=== PATIENT | male | born 1985 | race Caucasian/White ===

== ENCOUNTER → 2020-06-28 09:55 | Outpatient (CLI) | payer BC, SELFPAY ==
[2019-01-12 07:44] VITALS: BMI 48.8
== END ==
PROVIDERS: Referring Provider Nurse Practitioner Family; Visit Provider Nurse Practitioner Family
DX: R11.2 Nausea with vomiting, unspecified (principal); R19.7 Diarrhea, unspecified; Z20.828 Contact with and (suspected) exposure to other viral communicable diseases
CPT/HCPCS: 87635; C9803; U0003

== ENCOUNTER 2023-01-24 11:52 | Emergency (ER) | payer SELFPAY ==
[2023-01-24 11:52] VITALS: BP 149/97; PULSE 90; RESP 14; TEMP 36.3; O2SAT 99; BMI 42.0
--- NOTE | 2023-01-24 12:11 | EDS_ITS ---
HPI <RICHELLE Nielsen - Last Filed: 01/24/23 14:54> History of Present Illness Chief Complaint: Hyperglycemia Narrative Narrative: Patient presenting today with concerns for hyperglycemia. He states that on Thursday he had a physical examination with a health clinic at work and they did a glucose test which came back at 300. He then bought a glucose monitor and noticed that it was 260 this morning fasting. He then went to urgent care and they performed a glucose test and it was 290. Because it had gone up they recommended he come to the emergency department to be evaluated. No history of diabetes states he does not have a PCP and does not get preventative care. His mom has a history of type 2 diabetes. He denies any increased thirst, increased hunger, increased urination, abdominal pain, nausea, and vomiting. PFSH <RICHELLE Nielsen - Last Filed: 01/24/23 14:54> [facility] Medical History (Updated 01/24/23 @ 13:36 by RICHELLE Nielsen) Sleep apnea Home Medications metformin 500 mg tablet,extended release 24 hr 500 mg PO QPM #30 tabs 01/24/23 [Rx Last Taken Unknown] Allergy/AdvReac Type Severity Reaction Status Date / Time Seasonal Allergies: Uncoded AdvReac Other Verified 01/24/23 12:25 Surgical History History of cholecystectomy Social History Smoking Status: Former smoker ROS <RICHELLE Nielsen - Last Filed: 01/24/23 14:54> ROS ED Constitutional Constitutional ED: Denies chills, fever(s) or sweats Eyes Eyes: Denies blurry vision Cardiovascular Cardiovascular: Denies chest pain or palpitations Respiratory/Chest Respiratory/Chest: Denies cough, dyspnea or wheezing Gastrointestinal Gastrointestinal: Denies abdominal pain, nausea or vomiting Genitourinary Genitourinary ED: Denies dysuria, hematuria or urinary urgency Musculoskeletal Musculoskeletal: Denies arthralgias or myalgias Integumentary Denies abscess, Abrasions or rash Neurologic Neurologic: Denies confusion, dizziness or weakness Psychiatric Psychiatric: Denies anxiety, depression, suicidal ideation or suicidal thoughts EXAM <RICHELLE Nielsen - Last Filed: 01/24/23 14:54> Physical Exam Const Vital Signs: 01/24/23 11:52 Temperature 97.3 F L Temperature Source Temporal Pulse Rate 90 Respiratory Rate 14 Blood Pressure 149/97 H Blood Pressure Mean 114 Pulse Ox 99 Oxygen Delivery Method Room Air Positive well nourished, well developed and no apparent distress General Appearance ED: well developed HEENT Reports normocephalic and head/scalp atraumatic Mouth ED: Yes moist mucous membranes normal Eyes PERRL and EOMs intact bilaterally Neck full ROM and supple Chest Wall inspection of chest normal Resp normal respiratory effort and clear to auscultation bilaterally Cardio regular rate and regular rhythm GI soft to palpation, non-tender, non-distended and no masses Back/Spine normal ROM and normal to inspection Extremity normal to inspection and full ROM Neuro oriented x3, CN's II-XII intact bilaterally, moves all extremities, no focal motor deficits and no sensory deficits noted Sensorium / Orientation: awake and alert Psych mental status grossly normal and thought process normal Skin no rashes or lesions noted and no wounds <Dr. Kristina Rojas DO - Last Filed: 01/24/23 12:19> Physical Exam Const Vital Signs: 01/24/23 11:52 Temperature 97.3 F L Temperature Source Temporal Pulse Rate 90 Respiratory Rate 14 Blood Pressure 149/97 H Blood Pressure Mean 114 Pulse Ox 99 Oxygen Delivery Method Room Air MDM <RICHELLE Nielsen - Last Filed: 01/24/23 14:54> [facility] MDM Narrative Medical decision making narrative: Presenting today for concerns for diabetes. He has had several high blood sugar readings over this past week. He does not have a PCP and has had no recent A1c. Labs obtained to rule out DKA here. His glucose is 291 without an anion gap and serum acetone is negative. I have spoke to Dr. Morley to establish patient for follow-up and he recommends starting patient on metformin and he will try to get him into the office next week if possible. Patient will be started on metformin and is comfortable with plan. He will be discharged home in stable condition with PCP follow-up. Has been given return instructions. I have personally performed a face to face assessment of the patient and have r eviewed the JOSE [facility] Note. I performed a substantive portion of the visit including all aspects of the following. My espinoza findings include: History is [patient presents the emergency department with concern about elevated blood glucose. Patient states that he had a physical for a new job 2 days ago and it was noted in his urine and he was spilling glucose. They checked his blood sugar and it was over 300. Patient was seen back today and had a fasting level done and was 280. A repeat level afterwards was 290 and they referred him to the ER. There is a family history of diabetes. Patient states he feels fine. Patient states he eats a lot of carbs. His significant other was concerned that he might go into a coma. Patient otherwise has no medical history.] Exam is [HEENT-PERRLA, EOMI. Cranial nerves II through XII grossly intact. TMs clear. Mucous membranes moist. No adenopathy. Cardiovascular-regular rate and rhythm without murmur or ectopy Lungs-clear to auscultation, chest wall stable without crepitus or subcu emphysema Abdomen-normoactive bowel sounds, soft, nontender, no rebound or rigidity, no peritoneal signs. Extremities-intact ?4, normal range of motion, normal pulses, atraumatic] Medical Decison Making [patient will have basic labs ordered. We will discussed case with primary care physician advisory application developer for no doc to start patient on diabetic meds and ensure close follow-up. Suspect patient likely type II diabetic. Patient is also overweight and will recommend regimen of diet and exercise.] Other additions or changes: [None] Lab Data Lab results narrative: CBC unremarkable, sodium 132, glucose 291, no anion gap, acetone negative Labs: Laboratory Results - last 24 hr 01/24/23 01/24/23 01/24/23 12:28 12:28 12:28 WBC 7.4 RBC 5.56 Hgb 16.1 Hct 46.9 MCV 84.4 MCH 29.0 MCHC 34.3 RDW Std Deviation 40.3 RDW Coeff of [place] 13.1 Plt Count 248 MPV 9.7 Immature Gran % (Auto) 1.400 H Neut % (Auto) 66.1 Lymph % (Auto) 26.1 Potter % (Auto) 4.9 Eos % (Auto) 1.1 Baso % (Auto) 0.4 Absolute Neuts (auto) 4.9 Absolute Lymphs (auto) 1.92 Nucleated RBC % 0 Sodium 132 L Potassium 3.6 Chloride 100 Carbon Dioxide 25.0 Anion Gap 7 BUN 12 Creatinine 0.83 Estim Creat Clear Calc 121.86 Est GFR (MDRD) Af Amer 134 Est GFR (MDRD) Non-Af 111 BUN/Creatinine Ratio 14.5 Glucose 291 H Calcium 9.6 Acetone Level NEGATIVE <Dr. Kristina Rojas, DO - Last Filed: 01/24/23 12:19> [facility] Narrative Medical decision making narrative: I have personally performed a face to face assessment of the patient and have reviewed the JOSE ANGEL Note. I performed a substantive portion of the visit including all aspects of the following. My espinoza findings include: History is [patient presents the emergency department with concern about elevated blood glucose. Patient states that he had a physical for a new job 2 days ago and it was noted in his urine and he was spilling glucose. They checked his blood sugar and it was over 300. Patient was seen back today and davey d a fasting level done and was 280. A repeat level afterwards was 290 and they referred him to the ER. There is a family history of diabetes. Patient states he feels fine. Patient states he eats a lot of carbs. His significant other was concerned that he might go into a coma. Patient otherwise has no medical history.] Exam is [HEENT-PERRLA, EOMI. Cranial nerves II through XII grossly intact. TMs clear. Mucous membranes moist. No adenopathy. Cardiovascular-regular rate and rhythm without murmur or ectopy Lungs-clear to auscultation, chest wall stable without crepitus or subcu emphys massiel Abdomen-normoactive bowel sounds, soft, nontender, no rebound or rigidity, no peritoneal signs. Extremities-intact ?4, normal range of motion, normal pulses, atraumatic] Medical Decison Making [patient will have basic labs ordered. We will discussed case with primary care physician advisory application developer for no doc to start patient on diabetic meds and ensure close follow-up. Suspect patient likely type II diabetic. Patient is also overweight and will recommend regimen of diet and exercise.] Other additions or changes: [None] Lab Data Attestation: I reviewed the patient's lab results. Labs: Laboratory Results - last 24 hr 01/24/23 01/24/23 01/24/23 12:28 12:28 12:28 WBC 7.4 RBC 5.56 Hgb 16.1 Hct 46.9 MCV 84.4 MCH 29.0 MCHC 34.3 RDW Std Deviation 40.3 RDW Coeff of [place] 13.1 Plt Count 248 MPV 9.7 Immature Gran % (Auto) 1.400 H Neut % (Auto) 66.1 Lymph % (Auto) 26.1 Potter % (Auto) 4.9 Eos % (Auto) 1.1 Baso % (Auto) 0.4 Absolute Neuts (auto) 4.9 Absolute Lymphs (auto) 1.92 Nucleated RBC % 0 Sodium 132 L Potassium 3.6 Chloride 100 Carbon Dioxide 25.0 Anion Gap 7 BUN 12 Creatinine 0.83 Estim Creat Clear Calc 121.86 Est GFR (MDRD) Af Amer 134 Est GFR (MDRD) Non-Af 111 BUN/Creatinine Ratio 14.5 Glucose 291 H Calcium 9.6 Acetone Level NEGATIVE Discharge Plan Triage Chief Complaint: Hyperglycemia ED Midlevel Provider: Eleln Arechiga ED Provider: Kristina Rojas Dx/Rx/DC Orders Clinical Impression: Hyperglycemia Instructions: ED Diabetes- Overview Prescriptions: New metformin 500 mg tablet extended release 24 hr 500 mg PO QPM Qty: 30 0RF Primary Care Provider: Care Physician,No Primary Referrals: Mallorie Morley MD [Med Staff - [employer] Specialist] - 5-7 Days Care Physician,No Primary [Primary Care Provider] - Activity Restrictions/Additional Instructions: Please follow-up with the PCP I referred you to. Disposition Disposition: Home, Self Care Discharge Date/Time: 01/24/23 13:50
[2023-01-24 12:40] LABS: Absolute Lymphocyte Count 1.92 X10^3/uL (0.83-4.51); Absolute Neutrophil Count 4.9 X10^3/uL (2.0-7.7); Basophil# 0.03 X10^3/uL; Basophil% 0.4 % (0-1); Eosinophil# 0.08 X10^3/uL; Eosinophils% 1.1 % (0-5); Hematocrit 46.9 % (40-54); Hemoglobin 16.1 g/dL (13.0-16.5); Lymphocyte # 1.92 X10^3/ul (0.83-4.51); Lymphocyte % 26.1 % (19-41); Mean Corp Hgb Conc 34.3 g/dL (32-36); Mean Corpuscular Volume 84.4 fL (80-94); Mean Platelet Vol. 9.7 fl (6.2-12.0); Monocyte# 0.36 X10^3/uL; Monocyte% 4.9 % (0-10); NRBC Flagged by Analyzer 0 % (0-5); Neutrophil # 4.88 X10^3/uL (2.7-7.7); Neutrophil % 66.1 % (47-70); Platelet Count 248 K/mm3 (150-450); RBC Distribution Width CV 13.1 % (11.6-14.6); RBC Distribution Width SD 40.3 fl (35.1-43.9); Red Blood Count 5.56 M/mm3 (4.6-6.2); White Blood Count 7.4 K/mm3 (4.4-11.0)
[2023-01-24 12:53] LABS: Anion Gap 7 (5-15); BUN 12 mg/dL (7-18); BUN/Creat Ratio 14.5 RATIO (10-20); Calcium,Total 9.6 mg/dL (8.5-10.1); Chloride 100 mmol/L (98-107); Creatinine, Serum 0.83 mg/dL (0.70-1.30); EST Glomerular Filtration Rate 111 mL/min (>60); Est Glom Filt Rate - Afr Amer 134 mL/min (>60); Estimated Creatinine Clearance 121.86 ml/min; Glucose 291 mg/dL (74-106); Potassium 3.6 mmol/L (3.5-5.1); Sodium Level 132 mmol/L (136-145)
== END 2023-01-24 13:50 | disposition home or self-care (01) ==
PROVIDERS: Physician Assistant; Emergency Provider Emergency Medicine; Visit Provider Emergency Medicine
DX: R73.9 Hyperglycemia, unspecified (principal); Z87.891 Personal history of nicotine dependence; E66.3 Overweight; Z90.49 Acquired absence of other specified parts of digestive tract
CPT/HCPCS: 80048; 82009; 85025; 99283; A4216

== ENCOUNTER → 2024-01-22 | Outpatient (CLI) | payer OTHER, SELFPAY ==
[2024-01-22 12:23] LABS: Absolute Lymphocyte Count 2.25 X10^3/uL (0.83-4.51); Absolute Neutrophil Count 5.1 X10^3/uL (2.0-7.7); Basophil# 0.02 X10^3/uL; Basophil% 0.3 % (0-1); Eosinophil# 0.05 X10^3/uL; Eosinophils% 0.6 % (0-5); Hematocrit 44.6 % (40-54); Hemoglobin 14.6 g/dL (13.0-16.5); Lymphocyte # 2.25 X10^3/ul (0.83-4.51); Lymphocyte % 28.8 % (19-41); Mean Corp Hgb Conc 32.7 g/dL (32-36); Mean Corpuscular Hgb 28.5 pg (27.0-32.0); Mean Corpuscular Volume 87.1 fL (80-94); Mean Platelet Vol. 10.1 fl (6.2-12.0); Monocyte# 0.41 X10^3/uL; Monocyte% 5.2 % (0-10); NRBC Flagged by Analyzer 0 % (0-5); Neutrophil # 5.06 X10^3/uL (2.7-7.7); Neutrophil % 64.7 % (47-70); Platelet Count 268 K/mm3 (150-450); RBC Distribution Width CV 13.3 % (11.6-14.6); RBC Distribution Width SD 42.5 fl (35.1-43.9); Red Blood Count 5.12 M/mm3 (4.6-6.2); White Blood Count 7.8 K/mm3 (4.4-11.0)
[2024-01-22 13:30] LABS: Microalbumin,Random Urine 47.3 mg/L (NO RANGE EST.); Microalbumin:Creatinine Ratio 47.4 mg/g CRE (<30 mg/g CRE)
[2024-01-22 13:34] LABS: AST(SGOT) 23 U/L (15-37); Alanine Aminotransfer ALT/SGPT 53 U/L (16-61); Alkaline Phosphatase 100 U/L (45-117); Anion Gap 6 (5-15); BUN 15 mg/dL (7-18); BUN/Creat Ratio 17.2 RATIO (10-20); Calcium,Total 9.8 mg/dL (8.5-10.1); Chloride 103 mmol/L (98-107); Cholesterol 125 mg/dL (200); Creatinine, Serum 0.87 mg/dL (0.70-1.30); EST Glomerular Filtration Rate 104 mL/min (>60); Est Glom Filt Rate - Afr Amer 126 mL/min (>60); Globulin 4.1 g/dL (2.2-4.2); Glucose 226 mg/dL (74-106); High Density Lipoprotein 29 mg/dL; Potassium 4.3 mmol/L (3.5-5.1); Protein, Total 8.1 g/dL (6.4-8.2); Sodium Level 136 mmol/L (136-145); Triglycerides 353 mg/dL; Very Low Density Lipoprotein 71 mg/dL (5-40)
== END | disposition home or self-care (01) ==
PROVIDERS: PCP Internal Medicine; Referring Provider Internal Medicine; Visit Provider Internal Medicine
DX: E11.9 Type 2 diabetes mellitus without complications (principal)
CPT/HCPCS: 36415; 80053; 80061; 82043; 82570; 85025

== ENCOUNTER → 2025-05-26 | Outpatient (CLI) | payer OTHER, SELFPAY ==
--- OUTSIDE RECORDS SUMMARY | 2025-05-26 11:23 | XMS RPT_ITS | CCD ---
Author Organization [facility] Care Team Providers Care Lab Tester Name Role Phone Sharri Ibarra PA-C Unavailable [phone] Leodana, Cori Unavailable Mario Law Unavailable Alex Scott Unavailable Suni Larry Unavailable Unavailable Tate Prakash Unavailable Unavailable Lorie Qiu Unavailable Unavailable Rhianna Staples Unavailable Unavailable Unavailable Unavailable Shahida Le Unavailable Unique Redding Unavailable Unavailable Staceyesa, Milena Attending Unavailable Ciesa, Milena Referring Unavailable Staceyesa, Milena Consulting Unavailable Alex Garcia MD Unavailable Unavailable Primary Care Provider Unavailabl e John, Sarah Referring Unavailable [place], Sarah Attending Unavailable [place], Sarah Primary Care Unavailable [place], Sarah Primary Care Unavailable John, Sarah Referring Unavailable [place], Sarah Attending Unavailable [place], Sarah Primary Care Unavailable [place], Sarah Referring Unavailable Finesse Guy Attending Unavailable [place], Sarah Referring Unavailable John, Sarah Attending Unavailable John, Sarah Primary Care Unavailable [place], Sarah Attending Unavailable Care Physician, No Primary Referring Unava ilable [place], Sarah Primary Care Unavailable John JONES, Dr. Smith Primary Care Provider [phone] Dr. Sarah Lopez MD Referring Provider Finesse Guy Attending Provider [phone] Finesse Guy Referring Provider [phone] Allergies Allergy Classification Reported Allergen(s) Allergy Type Date of Onset Reaction(s) Facility (3 sources) Pollen Extracts *ALTERNATIVE MEDICINES*; Translations: [Pollen Extracts *ALTERNATIVE MEDICINES*] drug allergy [facility] Work Phone: (2 sources) Seasonal Allergies: Uncoded; Translations: [Seasonal Allergies: Uncoded] Propensity to adverse reactions 3 Other [facility] Medications Current Medications Medication Drug Class(es) Dates Sig (Normalized) Sig (Original) aspirin 81 mg delayed release oral tablet (1 source) Platelet Aggregation Inhibitor, Nonsteroidal Anti-inflammatory Drug take 1 tablet by mouth once daily aspirin, enteric coated (ASPIRIN, ENTERIC COATED) 81 mg EC tablet Take 81 mg by mouth once daily. Active empagliflozin 10 mg oral tablet (1 source) Sodium-Glucose Cotransporter 2 Inhibitor Start: 05-26-2025 take 1 tablet by mouth once daily Empagliflozin (Jardiance) 10 mg tablet Active 10 mg PO daily 90 0 May 26, 2025 12:00am loratadine 10 mg oral tablet (5 sources) Start: 02-06-2023 take 1 tablet by mouth once daily Loratadine (Claritin) 10 mg tablet,chewable Active 10 mg PO DAILY February 06, 2023 12:00am Start: 01-12-2019 take 1 capsule by mo [facility] once daily Claritin 10 MG Oral Capsule 1 (one) Capsule daily for 0 days Quantity: 30 {Capsule} Refills: 0 Ordered: 12-Jan-2019 Nabil VALDOVINOS, Cori Nabil VALDOVINOS, Milena Raman Start : 12-Jan-2019 Active loratadine (CLAR ITIN ORAL) Take by mouth. Active 24 hr metFORMIN hydrochlorid e 500 mg extended release oral tablet (19 sources) Biguanide Start: 12-23-2024 End: 05-26-2025 Metformin 500 mg tablet extended release 24 hr Active 1000 mg PO TWICE A DAY 120 2 May 26, 2025 9:18am Start: 08-15-2023 take 1 tablet by umesh every twelve hours metFORMIN ER (GLUCOPHAGE XR) 500 mg 24 hr tablet Take 1 tablet by mouth every 12 hours. 08/15/2023 Active Start: 02-06-2023 End: 05-26-2025 take 1 tablet by mouth twice daily Metformin 500 mg tablet extended release 24 hr Discontinued 500 mg PO TWICE A DAY 60 0 November 14, 2024 10:02am May 26, 2025 9:18am Start: 01-24-2023 End: 02-06-2023 take 1 tablet by mouth once daily in the evening Metformin 500 mg tablet extended release 24 hr Discontinued 500 mg PO EVERY EVENING 30 0 January 24, 2023 12:00am February 06, 2023 10:08am ondansetron 4 mg disintegrating oral tablet (3 sources) Serotonin-3 Receptor Antagonist Start: 02-03-2025 take 1 tablet by mouth every eight hours as needed for nausea and nausea ondansetron orally disintegrating (ZOFRAN ODT) 4 mg disintegrating tablet Indications: Nausea Take 1 tablet by mouth every 8 hours as needed for nausea/vomiting for up to 10 doses. 10 tablet 02/03/2025 Active Start: 11-11-2018 End: 01-12-2019 take 1 tablet by mouth every eight hours as needed for nausea and vomiting Zofran ODT 4 MG Oral Tablet Disintegrating 1 (one) Tablet q 8hr prn nausea and vomitting for 0 days Quantity: 10 {Tablet} Refills: 0 Ordered: 12-Jan-2019 Tate Prakash Start : 11-Nov-2018 End : 12-Jan-2019 Discontinued Comments: This order discontinued per [facility]. Comment on above: This order discontin ued per [facility]. predniSONE 10 mg oral tablet (2 sources) Start: 04-22-2022 predniSONE (DELTASONE) 10 mg tablet Take 4 tabs daily for 3 days, then 2 tabs daily for 3 days, then 1 tab daily for 3 days with food. 21 tablet 04/22/2022 Active Tirzepatide (Mounjaro) 2.5 mg/0.5 mL pen injector (3 sources) Start: 05-26-2025 Tirzepatide (Mounjaro) 2.5 mg/0.5 mL pen injector Active 2.5 mg SC EVERY WEEK 2 May 26, 2025 12:00am for 4 weeks Start: 09-30-2023 End: 10-28-2023 Tirzepatide (Mounjaro) 2.5 m g/0.5 mL pen injector Discontinued 2.5 mg SC EVERY WEEK September 30, 2023 1:00am October 27, 2023 1:00am October 28, 2023 1:04am Type 2 diabetes mellitus Type 2 diabetes mellitus with hyperglycemia Start: 09-30-2023 End: 10-28-2023 Tirzepatide (Mounjaro) 2.5 m g/0.5 mL pen injector Discontinued 2.5 MG SC EVERY WEEK 2 September 30, 2023 1:00am October 28, 2023 1:04am Completed/Discontinued Medications Medication Drug Class(es) Dates Sig (Normalized) Sig (Original) acetaminophen 325 mg / guaiFENesin 200 mg / phenylephrine hydrochloride 5 mg oral tablet (1 source) alpha-1 Adrenergic Agonist Start: 01-12-2019 take 1 tablet by mouth twice daily Mucinex Sinus-Max Congestion 5-325-200 MG Oral Tablet 1 (one) Tablet bid for 0 days Quantity: 30 {Tablet} Refills: 0 Ordered: 12-Jan-2019 Nabil VALDOVINOS Milena Raman Staceymarilyndelta VALDOVINOS Milena Raman Start : 12-Jan-2019 Active Start: 01-12-2019 take 1 tablet by umesh th twice daily Mucinex Sinus-Max Congestion 5-325-200 MG Oral Tablet 1 (one) Tablet bid for 0 days Quantity: 30 {Tablet} Refills: 0 Ordered: 12-Jan-2019 Nabil VALDOVINOS Cori Cimarilyndelta VALDOVINOS Milena Raman Start : 12-Jan-2019 Active acetaminophen 325 mg / oxyCODONE hydrochloride 5 mg oral tablet (3 sources) Opioid Agonist Start: 06-04-2017 End: 01-12-2019 Oxycodone-Acetaminophen 1 TABLET tablet Discontinued 1 - 2 {tbl} PO EVERY 4 HOURS NEEDED as needed for Pain June 04, 2017 12:00am January 12, 2019 7:45am Start: 06-04-2017 End: 01-12-2019 take 1 tablet by mouth every four hours as needed Oxycodone-Acetaminophen Discontinued 1 - 2 TABLET PO EVERY 4 HOURS NEEDED June 04, 2017 12:00am January 12, 2019 7:45am cocoa butter 0.76 mg/mg / zinc oxide 0.1 mg/mg rectal suppository (3 sources) Start: 07-23-2017 End: 11-11-2018 Calmol-4 76-10 % Rectal Suppository 1 (one) Suppository Up to 6 times a day, or after each BM. for 0 days Quantity: 3 {Box} Refills: 0 Ordered: 11-Nov-2018 Tate Prakash Start : 23-Jul-2017 End : 11-Nov-2018 Inactive fenofibric acid 135 mg delayed release oral capsule (3 sources) Peroxisome Proliferator Receptor alpha Agonist Start: 06-28-2015 End: 07-23-2017 take 1 capsule by mouth once daily Trilipix 135 MG Oral Capsule Delayed Release 1 (one) Capsule DR Capsule DR daily for 0 days Quantity: 30 {QS} Refills: 11 Ordered: 23-Jul-2017 Rhianna Turner LPN Start : 28-Jun-2015 End : 23-Jul-2017 Inactive omeprazole 20 mg delayed release oral capsule (3 sources) Proton Pump Inhibitor Start: 05-14-2017 End: 07-23-2017 take 1 capsule by mouth once daily 30 minutes before mealtime Omeprazole Magnesium 20.6 (20 Base) MG Oral Capsule Delayed Release 1 (one) Capsule Capsule daily for 0 days Quantity: 30 {Capsule} Refills: 0 Ordered: 23-Jul-2017 Rhianna Turner LPN Start : 14-May-2017 End : 23-Jul-2017 Inactive Comments: Take at least 30 min before meal. Comment on above: Take at least 30 min before meal. Semaglutide (5 sources) Start: 05-02-2024 End: 12-23-2024 Semaglutide (Ozempic) 0.25 mg or 0.5 mg (2 mg/3 mL) pen injector Discontinued 0.5 mg SC EVERY WEEK 3 May 02, 2024 8:32am December 23, 2024 8:35am for 4 weeks Start: 03-28-2024 End: 05-02-2024 Semaglutide (Ozempic) 0.25 m g or 0.5 mg (2 mg/3 mL) pen injector Discontinued 0.5 mg SC EVERY WEEK 3 March 28, 2024 8:23am May 02, 2024 8:33am for 4 weeks Start: 01-28-2024 End: 03-28-2024 Semaglutide (Ozempic) 0.25 m g or 0.5 mg (2 mg/3 mL) pen injector Discontinued 0.5 mg SC EVERY WEEK 3 January 28, 2024 9:00am March 28, 2024 8:23am for 4 weeks Start: 11-16-2023 End: 01-28-2024 Semaglutide (Ozempic) 0.25 m g or 0.5 mg (2 mg/3 mL) pen injector Discontinued 0.25 mg SC EVERY WEEK 3 November 16, 2023 1:00am January 28, 2024 9:02am for 4 weeks Start: 11-16-2023 Semaglutide (O zempic) 0.25 mg or 0.5 mg (2 mg/3 mL) pen injector Active 0.25 MG SC EVERY WEEK 3 November 16, 2023 1:00am for 4 weeks NEGATED: Highlighted row has not occurred!drug or medication (1 source) No Known Histori felipa Medications Problems Active Problems Problem Classification Problem Date Documented Da te Episodic/Chronic Biliary tract disease (6 sources) Biliary sludge; Translations: [Other specified diseases of gallbladder] Onset: 7 05-29-2017 Chronic Diabetes mellitus with complications (1 source) Type 2 diabetes mellitus with hyperglycemia; Translations: [Type 2 diabetes mellitus with hyperglycemia] Onset: 5 Chronic Diabetes mellitus without complication (4 sources) Type 2 diabetes mellitus; Translations: [Type 2 diabetes mellitus without complications] Onset: 4 08-31-2023 Chronic Diabetes mellitus without complication (3 sources) Hyperglycemia; Translations: [Hyperglycemia, unspecified] 01-24-2023 Episodic Disorders of lipid metabolism (6 sources) Hypertriglyceridemia; Translations: [Hypertriglyceridemia] 07-23-2017 Chronic Esophageal disorders (3 sources) Gastroesophageal reflux disease; Translations: [Acid reflux] 07-23-2017 Chronic Gastrointestinal hemorrhage (2 sources) Melena; Translations: [Bloody stool] 07-23-2017 Episodic Influenza (3 sources) Influenza due to Influenza A virus; Translations: [Influenza due to other identified influenza virus with other respiratory manifestations] 01-12-2019 Episodic Nausea and vomiting (20 sources) Nausea; Translations: [Vomiting] Resolved: 7 07-23-2017 Episodic Other gastrointestinal disorders (2 sources) Irritable bowel syndrome; Translations: [Irritable bowel syndrome without diarrhea] 02-06-2023 Chronic Other gastrointestinal disorders (12 sources) Diarrhea; Translations: [Diarrhea, unspecified] 07-23-2017 Episodic Other gastrointestinal disorders (2 sources) Gastrointestinal tract problem; Translations: [Other specified symptoms and signs involving the digestive system and abdomen] 09-07-2023 Episodic Comment on above: bloating Other liver diseases (9 sources) Steatosis of liver; Translations: [Fatty liver] 07-23-2017 Chronic Comment on above: liver enzymes normal 05-14-17 Other nervous system disorders (3 sources) Circadian rhythm sleep disorder, shift work type; Translations: [Circadian rhythm sleep disorder of shift work type] 07-23-2017 Chronic Other nutritional; endocrine; and metabolic disorders (6 sources) Body mass index 40+ - severely obese; Translations: [BMI 45.0-49.9, adult] Resolved: 7 11-11-2018 Chronic Other upper respiratory disease (2 sources) Seasonal allergy; Translations: [Seasonal allergies] 01-12-2019 Chronic Other upper respiratory infections (3 sources) Common cold; Translations: [Acute upper respiratory infection] 01-12-2019 Episodic Past or Other Problems Problem Classification Problem Date Documented Da te Episodic/Chronic Abdominal pain (6 sources) Right upper quadrant pain; Translations: [Acute abdominal pain] Onset: 05-29-2017 05-29-2017 Episodic Complications of surgical procedures or medical care (2 sources) Vascular complication of medical care; Translations: [Intravenous infiltration, initial encounter] 11-11-2018 Episodic Esophageal disorders (2 sources) Esophageal disorders Fever of unknown origin (4 sources) Fever with chills; Translations: [Fever and chills] 11-11-2018 Episodic Fluid and electrolyte disorders (10 sources) Dehydration; Translations: [Dehydration] Resolved: 07-23-2017 11-11-2018 Episodic Comment on above: pos ortho-- go home and drink few ounces at a time - rx zofran called in-- attempted iv few times and they blew adn infiltrated-- Gastrointestinal hemorrhage (1 source) Blood-tinged feces; Translations: [Bloody stool] 01-12-2019 Headache; including migraine (3 sources) Headache; including migraine Hemorrhoids (6 sources) Bleeding internal hemorrhoids; Translations: [External hemorrhoids] 07-23-2017 Episodic Influenza (1 source) Influenza Noninfectious gastroenteritis (8 sources) Gastroenteritis; Translations: [Acute gastroenteritis] 07-23-2017 Episodic Comment on above: Treated in ER 015 Other liver diseases (6 sources) Large liver; Translations: [Hepatomegaly] 07-23-2017 Episodic Comment on above: from CT of abd on 09-09 Other lower respiratory disease (6 sources) Snoring; Translations: [Snoring] 07-23-2017 Episodic Other lower respiratory disease (2 sources) Cough; Translations: [Cough] 01-12-2019 Episodic Other upper respiratory disease (2 sources) Congestion of nasal sinus; Translations: [Congestion of nasal sinus] 01-12-2019 Episodic Unclassified (9 sources) BMI 45.0-49.9, adult Unclassified (3 sources) Internal hemorrhoid, bleeding Unclassified (20 sources) Unclassified (3 sources) External hemorrhoid Unclassified (3 sources) Shift work sleep disorder Unclassified (16 sources) Non-smoker; Translations: [Non-smoker] 11-11-2018 Unclassified (3 sources) Abdominal pain, acute Unclassified (3 sources) Diarrhea, unspecified type Unclassified (3 sources) Gallbladder sludge Unclassified (7 sources) BMI 50.0-59.9, adult Unclassified (3 sources) Bloody stool Unclassified (2 sources) Intravenous infiltration, initial encounter Unclassified (2 sources) Diarrhea in adult patient Unclassified (2 sources) Gastroenteritis, acute Results Test Name Value Interpretation Reference Range Facility [facility] 02-03-2025 CNOV Office Visit (UCTR ) FARHAD MAYES ([id number]) 1985 M Date Time Provider Department 02/03/25 9:00 AM KIARA ELLSWORTH [facility] During your visit today, we recorded the following information about you: Temperature Pulse Respiration Blood pressure 98 degrees 95/minute 18/minute 132/87 Weight 129.7 kg Kiara Ellsworth APRN.CNP 02/03/2025 9:13 AM Signed This note was created using NoteWriter. Subjective Farhad Cecile Gerber is a 39 year old male. HPI Patient woke this morning complaining of diarrhea, chills, and cramps. He states he did not feel well through the night and did not get much sleep. He otherwise denies any fever urinary burning or frequency Review of Systems As above Objective BP 132/87 Pulse 95 Temp 36.7 ?C (98 ?F) Resp 18 Wt 129.7 kg (285 lb 15 oz) SpO2 99% Physical Exam Vitals and nursing note reviewed. Constitutional: General: He is not in acute distress. Appearance: Normal appearance. He is not ill-appearing. HENT: Head: Normocephalic. Mouth/Throat: Mouth: Mucous membranes are moist. Eyes: Conjunctiva/sclera: Conjunctivae normal. Cardiovascular: Rate and Rhythm: Normal rate and regular rhythm. Pulmonary: Effort: Pulmonary effort is normal. Breath sounds: Normal breath sounds. Abdominal: Palpations: Abdomen is soft. Tenderness: There is no abdominal tenderness. Musculoskeletal: General: Normal range of motion. Cervical back: Normal range of motion. Skin: General: Skin is warm and dry. Neurological: General: No focal deficit present. Mental Status: He is alert. Psychiatric: Mood and Affect: Mood normal. Behavior: Behavior normal. Assessment and Plan ASSESSMENT/PLAN: 1. Diarrhea, unspecified type - ICD9: 787.91, ICD10: R19.7 (primary diagnosis) Discussed with patient the use of high-calorie fluids such as Gatorade or Ensure. Recommended to monitor that he urinates at least 3-4 times per day. Instructed to go to the emergency department if he feels as though he is getting dehydrated. 2. Nausea - ICD9: 787.02, ICD10: R11.0 Patient given a prescription for Zofran to use as needed for nausea. He was instructed to slowly resume diet as tolerated. Patient given a work note. - ONDANSETRON 4 MG DISINTEGRATING TABLET Kiara Ellsworth APRN.CNP Allergies As of Date: 02/03/2025 (No Known Allergies) Date Reviewed: 02/03/2025 Reviewed by: Kiara Ellsworth APRN.CNP - Fully Assessed Reason for Visit: Diarrhea [35] Cmt: Nausea, sweats, stomach cramps x last night Primary Visit Diagnosis:Diarrhea, unspecified type [R19.7] Other Visit Diagnosis:Nausea [R11.0] Order(s):ondansetron orally disintegrating (ZOFRAN ODT) 4 mg disintegrating tabletTake 1 tablet by mouth every 8 hours as needed for nausea/vomiting for up to 10 doses.Disp: 10 tabletRfl: 0 Prescriptions as of 02/03/2025 - aspirin, enteric coated (ASPIRIN, ENTERIC COATED) 81 mg EC tablet Take 81 mg by mouth once daily. - ondansetron orally disintegrating (ZOFRAN ODT) 4 mg disintegrating tablet Take 1 tablet by mouth every 8 hours as needed for nausea/vomiting for up to 10 doses. - metFORMIN ER (GLUCOPHAGE XR) 500 mg 24 hr tablet Take 1 tablet by mouth every 12 hours. - predniSONE (DELTASONE) 10 mg tablet Take 4 tabs daily for 3 days, then 2 tabs daily for 3 days, then 1 tab daily for 3 days with food. - loratadine (CLARITIN ORAL) Take by mouth. Problem List As Of Date: 02/03/2025 (None) Prescriptions ordered this encounter Disp Refills Start End ONDANSETRON 4 MG DISINTEGRATING TABL* 10 t* 0 02/03/2025 Route: ORAL Sig: Take 1 tablet by mouth every 8 hours as needed for nausea/vomiting for up to 10 doses. Letter Text Encounter Status:Closed by KIARA ELLSWORTH on 02/03/25 Normal [facility] Internal Medicine Office Vis iton 12-23-2024 Internal Medicine Office Visit [facility] [place], [place] [address] OFFICE VISIT Date of Service: 12/23/24 MR#: [id number] Acct: [id number] Name: FARHAD MAYES Rep #: [id number] : 1985 Provider: RICHELLE Rojas Age/Sex: 39/M Location: [facility] [place] Status: Signed Intake Vital Signs 05/02/24 08:13 Height 5 ft 9 in Weight: 287 lb BMI 42.3 BP 122/82 H Blood Pressure Location Lt brachial Position Sitting Respiration 18 Pulse 102 H Pulse Source Monitor Temp 98.5 F Temp Source Temporal Pulse Oximetry (%) 98 Oxygen Delivery Method room air Intake Visit Reasons: acute - med refills Chief Complaint: follow up General Helper Required: No Accompanied by: Self Is patient in pain?: No Allergies Seasonal Allergies: Uncoded Adverse Reaction (Verified 12/23/24 07:31) Other Medications ???Medication ???Instructions ???Recorded ???Confirmed ???Type loratadine 10 mg chewable tablet 10 mg PO DAILY 02/06/23 12/23/24 H istory (Claritin) metformin 500 mg tablet,extended 500 mg PO BID #60 TABLETS 11/14/24 12/23/24 Rx release 24 hr metformin 500 mg tablet,extended 1,000 mg (2 x 500 mg) PO BID #120 12/23/24 12/23/24 Rx release 24 hr tabs Have you fallen in the past year?: No Nurse's Note: refills and discuss ozempic as patient stopped taking several months ago [facility] Medical History Type 2 diabetes mellitus Irritable bowel syndrome Gastrointestinal problem Sleep apnea Influenza A Surgical History H/O hernia repair History of cholecystectomy Family History Father Cancer prostate Diabetes Mother Diabetes Hypertension Kidney disease Parkinsons disease Grandfather Heart disease Social History household members: spouse and children current occupational status: employed 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 Patient stopped his Ozempic several months ago (after ). He has been taking his metformin regularly (did run out just a few days ago). He states that he was doing a good job of walking every morning but then it got cold and so he has not He has not been checking his blood sugar as much He states that he didn't see any change in how he was feeling or with his weight after stopping the Ozempic. He does not take baby ASA daily He does see eye doctor every other year but does have appt to see them this year. Has seen podiatry for some stinging pains / discomfort in his feet. He was told he had some poor circulation but no neuropathy. He states that has been wearing compression stockings. He states that his diet has been fair. Has been trying to do more of a high protein diet. Tries to limit his carbs ROS Const Constitutional: No body ache, excessive sweating, fatigue, fever(s), frequent falls, headache(s), snoring, weakness, weight change, sleep problems or change in appetite Eyes Eyes: No blurry vision, change in vision, eye pain or Light sensitivity ENT ENT: No abnormal hearing, ear or mastoid pain, tinnitus, nasal congestion, headache(s), neck pain or sore throat Resp Respiratory: No cough, shortness of breath, snoring or wheezing Cardio Cardiology: No chest pain at rest, chest pain with exertion, excessive sweating, shortness of breath, dyspnea on exertion, lightheadedness, orthopnea or palpitations Gastro GI: No abdominal pain, change in bowel habits, constipation, cramping, diarrhea, nausea/dyspepsia or vomiting Genitourinary Male: No burning urination, painful urination, urinary incontinence, urinary frequency or blood in urine Musc Musculoskeletal: No abnormal gait, joint pain, back pain, limited range of motion, neck pain, numbness, stiffness, tingling or Arthritis Skin Skin: No dry skin, redness, lesions, itchy eyes, rash or wounds Neuro Neurology: No abnormal gait, abnormal hearing, abnormal speech, dizziness, weakness, frequent falls, headache(s), memory loss, numbness or tingling Psych Psychiatric: No anxiety, No change in appetite, No depression, No memory loss and No Thoughts of harming yourself/Others Endo Endocrine: No cold intolerance, excessive sweating, fati (more content not included)... Normal [facility] CNOVon 12-02-2024 CNOV Office Visit ([facility] ) FARHAD MAYES ([id number]) 1985 M Date Time Provider Department 12/02/24 9:15 AM LIZ MURCIA [facility] During your visit today, we recorded the following information about you: Temperature Pulse Respiration Blood pressure 97.9 degrees 98/minute 18/minute 139/88 Weight 128.4 kg Liz Murcia APRN.[facility] 12/02/2024 9:29 AM Signed CC: Patient presents with: Nausea: Diarrhea, chills, fatigue x this AM HPI: Farhad Mayes is a 39 year old male who presents to the office with complaint of head congestion and cough, nonproductive since this morning. Symptoms are staying the same. Associated symptoms includes fatigue, nausea, diarrhea, and chills. Denies sore throat, ear pain, wheezing, and dyspnea. Treatments tried include nothing so far. with no relief of symptoms. Sick contacts: unknown. History of asthma, frequent episodes of bronchitis, chronic bronchitis, bronchiectasis or COPD: No Smoker: yes Seasonal/environmental allergies: No The ROS is otherwise negative. The patient's pmh, medications, allergies, and past visits are reviewed. PHYSICAL EXAM: BP 139/88 Pulse 98 Temp 36.6 ?C (97.9 ?F) Resp 18 Wt 128.4 kg (283 lb 1.1 oz) SpO2 99% General appearance: alert, cooperative, pleasant, in no acute distress Head: Normocephalic Eyes: EOM's intact, conjunctiva pink and moist, no icterus, sclera white, non-injected Ears: Right ear: External ear/canal- Normal, TM - clear with good landmarks. Left ear: External ear/canal- Normal, TM - clear with good landmarks Oropharynx:moist without lesions, No erythema, exudates or tonsillar hypertrophy. Heart: Negative. RRR without obvious murmur, gallop, or rubs. No ectopy. Lungs: clear to auscultation, without rales or wheeze, good air exchange No past medical history on file. No past surgical history on file. ALLERGIES Patient has no known allergies. MEDICATIONS metFORMIN ER (GLUCOPHAGE XR) 500 mg 24 hr tablet Take 1 tablet by mouth every 12 hours. loratadine (CLARITIN ORAL) Take by mouth. predniSONE (DELTASONE) 10 mg tablet Take 4 tabs daily for 3 days, then 2 tabs daily for 3 days, then 1 tab daily for 3 days with food. (Patient not taking: Reported on 11/06/2023) No family history on file. Social History Tobacco Use Smoking status: Former Smokeless tobacco: Never Vaping Use Vaping status: Never Used Substance Use Topics Alcohol use: Never Drug use: Never ASSESSMENT/PLAN: 1. URI, acute - ICD9: 465.9, ICD10: J06.9 viral at this time. Supportive care Potential red flag symptoms discussed with the patient. Reviewed appropriate action plan to take if red flag symptoms occur. Patient agreeable to treatment plan. 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 - predniSONE (DELTASONE) 10 mg tablet Take 4 tabs daily for 3 days, then 2 tabs daily for 3 days, then 1 tab daily for 3 days with food. - loratadine (CLARITIN ORAL) Take by mouth. Problem List As Of Date: 12/02/2024 (None) Letter Text Encounter Status:Closed by LIZ MURCIA on 12/02/24 Normal [facility] Internal Medicine Office Vis iton 04-27-2024 Internal Medicine Office Visit [facility] [address] [place] [address] [place] [address] OFFICE VISIT Date of Service: 05/02/24 MR#: [id number] Acct: [id number] Name: FARHAD MAYES Rep #: [id number] : 1985 Provider: Dr. Sarah jefferson MD Age/Sex: 38/M Location: [facility] [place] [facility] [place] Status: Signed Intake Vital Signs 01/28/24 08:27 05/02/24 08:13 Height 5 ft 9 in 5 ft 9 in Weight: 287 lb BMI 42.3 BP 122/82 H Blood Pressure Location Lt brachial Position Sitting Respiration 18 Pulse 102 H Pulse Source Monitor Temp 98.5 F Temp Source Temporal Pulse Oximetry (%) 98 Oxygen Delivery Method room air Intake Visit Reasons: 3 m fu Chief Complaint: follow up General Helper Required: No Is patient in pain?: No Allergies Seasonal Allergies: Uncoded Adverse Reaction (Verified 05/02/24 08:09) Other Medications ???Medication ???Instructions ???Recorded ???Confirmed ???Type loratadine 10 mg chewable tablet 10 mg PO DAILY 02/06/23 05/02/24 History (Claritin) metformin 500 mg tablet,extended 500 mg PO BID #180 tabs 02/28/24 05/02/24 Rx release 24 hr semaglutide 0.25 mg or 0.5 mg (2 0.5 mg (0.736 mL) subcut QWEEK #3 05/02/24 05/02/24 Rx mg/3 mL) subcutaneous pen injector mL (Ozempic) Nurse's Note: needs ozempic refilled [facility] Medical History Type 2 diabetes mellitus Irritable bowel syndrome Gastrointestinal problem Sleep apnea Influenza A Surgical History H/O hernia repair History of cholecystectomy Family History Father Cancer prostate Diabetes Mother Diabetes Hypertension Kidney disease Parkinsons disease Grandfather Heart disease Social History household members: spouse and children current occupational status: employed 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 He is up to date on his routine blood work. He is not due for any screening. He previously declined his COVID vaccines. He thinks his tetanus was done within the last 5 years. He doesn't smoke and does need refills. He reports he was doing well in terms of his diet, but recently moved and states he fell away from it during that time. He is trying to get back to it, however. He is staying active. He reports he is in a new position at work which is more physical. He was checking his sugars at home prior to moving. It was in the 150-210 range. He reports he hasn't had any low sugars. He is taking his medication as prescribed. He reports his appetite is a little difference. He has cut back on his pop and energy drinks and is trying to monitor his carbohydrate and sugar intake. He reports the diarrhea isn't as bad since being on the ozempic. He is up to date on his diabetic eye exam and doesn't see podiatry. He reports his allergies are well controlled on his claritin. He takes it regularly in the mornings and reports it keeps it controlled. The patient has obstructive sleep apnea. He wears his CPAP every night and does well with it. He has no other questions or concerns at this time. ROS Const Constitutional: Positive for fatigue, headache(s) and weight change; No body ache, chills, excessive sweating, fever(s), frequent falls, snoring, weakness, sleep problems or change in appetite Eyes Eyes: No blurry vision, change in vision, eye pain or Light sensitivity ENT ENT: Positive for headache(s); No abnormal hearing, ear or mastoid pain, tinnitus, nasal congestion, neck pain or sore throat Resp Respiratory: No cough, shortness of breath, snoring or wheezing Cardio Cardiology: Positive for lightheadedness (one episode, resolved); No chest pain at rest, chest pain with exertion, excessive sweating, shortness of breath, dyspnea on exertion, orthopnea, palpitations or other (no leg swelling) Gastro GI: Positive for diarrhea (mild, improved); No abdominal pain, change in bowel habits, constipation, cramping, nausea/dyspepsia or vomiting Genitourinary Male: No difficulty urinating, burning urination, painful urination, urinary incontinence or urinary frequency Musc Musculoskeletal: No abnormal gait, joint pain, back pain, limited range of motion, (more content not included)... Normal [facility] Absolute lymphocyte countOrd ered By: Sarah John on 01-22-2024 Lymphocytes Auto (Unsp spec) [#/Vol] 2.25 10*3/uL 0.83-4.51 [facility] Automated lymphocyte count a s percentage of total leukocytesOrdered By: Sarahshirlene Arrietalay on 01-22-2024 Lymphocytes/100 WBC Auto (Unsp spec) 28.8 % 19-41 [facility] Basophil percentageOrdered B y: Sarah John on 01-22-2024 Basophils/100 WBC (Bld) 0.3 % 0-1 [facility] Bilirubin [Mass/Vol] 0.60 mg/dL 0.20-1.00 [facility] Comment on above: For patients on eltr ombopag therapy, use of Dimension [place] TBIL is not recommended. Chloride [Moles/Vol] 103 mmol/L 98-107 [facility] Cholesterol [Mass/Vol] 125 mg/dL <200 [facility] Comment on above: <200 mg/dL Desirable 200-240 mg/dL Borderline >240 mg/dL High Risk Eosinophils/100 WBC (Bld) 0.6 % 0-5 [facility] Glucose [Mass/Vol] 226 mg/dL 74-106 [facility] Comment on above: Glucose result great er than or equal to 200 mg/dLsuggests DIABETES MELLITUS per A.D.A. criteria. Hemoglobin (Bld) [Mass/Vol] 14.6 g/dL 13.0-16.5 [facility] Monocytes/100 WBC (Bld) 5.2 % 0-10 [facility] Neutrophils (Bld) [#/Vol] 5.1 10*3/uL 2.0-7.7 [facility] Neutrophils/100 WBC (Bld) 64.7 % 47-70 [facility] Potassium [Moles/Vol] 4.3 mmol/L 3.5-5.1 [facility] Protein [Mass/Vol] 8.1 g/dL 6.4-8.2 [facility] Sodium [Moles/Vol] 136 mmol/L 136-145 [facility] Triglyceride [Mass/Vol] 353 mg/dL <199 [facility] Comment on above: The drugs N-Acetylcy steine and Metamizole may falsely depress this assay.Serum Triglycerides Reference Interval Normal <150 mg/dL Borderline high 150 - 199 mg/dL High 200 - 499 mg/dL Very High > or = 500 mg/dL WBC (Bld) [#/Vol] 7.8 10*3/uL 4.4-11.0 [facility] CBC W/Diff, Automatedon 12-25 Absolute Lymph 2.25 X10 3/uL Normal 0.83-4.51 [facility] Comment on above: Performed By: #### L 500.4050, L100.0100, L502.0250, L500.4100 #### [facility] [address] [place], [address] Absolute Neut 5.1 X10 3/uL Normal 2.0-7.7 [facility] Comment on above: Performed By: #### L 500.4050, L100.0100, L502.0250, L500.4100 #### [facility] [address] [place], [address] Basophils/100 WBC (Bld) 0.3 % Normal 0-1 [facility] Comment on above: Performed By: #### L 500.4050, L100.0100, L502.0250, L500.4100 #### [facility] [address] [place], [address] Eosinophils/100 WBC (Bld) 0.6 % Normal 0-5 [facility] Comment on above: Performed By: #### L 500.4050, L100.0100, L502.0250, L500.4100 #### [facility] [address] [place], [address] Erythrocyte distribution width (RBC) [Ratio] 13.3 % Normal 11.6-14.6 [facility] Comment on above: Performed By: #### L 500.4050, L100.0100, L502.0250, L500.4100 #### [facility] [address] [place], [address] Hematocrit (Bld) [Volume fraction] 44.6 % Normal 40-54 [facility] Comment on above: Performed By: #### L 500.4050, L100.0100, L502.0250, L500.4100 #### [facility] [address] [place], [address] Hemoglobin (Bld) [Mass/Vol] 14.6 g/dL Normal 13.0-16.5 [facility] Comment on above: Performed By: #### L 500.4050, L100.0100, L502.0250, L500.4100 #### [facility] [address] [place], [address] IG% 0.400 Normal 0.0-0.9 [facility] Comment on above: Result Comment: IG% - Immature Granulocytes (promyelocytes, myelocytes and metamyelocytes) > 1% indicates that a LEFT SHIFT is Present. Performed By: #### L 500.4050, L100.0100, L502.0250, L500.4100 #### [facility] [address] [place], [address] Lymphocytes/100 WBC (Bld) 28.8 % Normal 19-41 [facility] Comment on above: Performed By: #### L 500.4050, L100.0100, L502.0250, L500.4100 #### [facility] [address] [place], [address] MCH (RBC) [Entitic mass] 28.5 pg Normal 27.0-32.0 [facility] Comment on above: Performed By: #### L 500.4050, L100.0100, L502.0250, L500.4100 #### [facility] [address] [place], [address] MCHC (RBC) [Mass/Vol] 32.7 g/dL Normal 32-36 [facility] Comment on above: Performed By: #### L 500.4050, L100.0100, L502.0250, L500.4100 #### [facility] [address] [place], [address] MCV (RBC) [Entitic vol] 87.1 fL Normal 80-94 [facility] Comment on above: Performed By: #### L 500.4050, L100.0100, L502.0250, L500.4100 #### [facility] [address] [place], [address] Monocytes/100 WBC (Bld) 5.2 % Normal 0-10 [facility] Comment on above: Performed By: #### L 500.4050, L100.0100, L502.0250, L500.4100 #### [facility] [address] [place], [address] Neutrophils/100 WBC (Bld) 64.7 % Normal 47-70 [facility] Comment on above: Performed By: #### L 500.4050, L100.0100, L502.0250, L500.4100 #### [facility] [address] [place], [address] Nucleated RBC (Bld) [#/Vol] 0 10*3/uL Normal 0-5 [facility] Comment on above: Performed By: #### L 500.4050, L100.0100, L502.0250, L500.4100 #### [facility] [address] [place], [address] Platelet mean volume (Bld) [Entitic vol] 10.1 fL Normal 6.2-12.0 [facility] Comment on above: Performed By: #### L 500.4050, L100.0100, L502.0250, L500.4100 #### [facility] [address] [place], [address] Platelets (Bld) [#/Vol] 268 10*3/uL Normal 150-450 [facility] Comment on above: Performed By: #### L 500.4050, L100.0100, L502.0250, L500.4100 #### [facility] [address] [place], [address] RBC (Bld) [#/Vol] 5.12 10*6/uL Normal 4.6-6.2 [facility] Comment on above: Performed By: #### L 500.4050, L100.0100, L502.0250, L500.4100 #### [facility] [address] [place], [address] RDW SD 42.5 fl Normal 35.1-43.9 [facility] Comment on above: Performed By: #### L 500.4050, L100.0100, L502.0250, L500.4100 #### [facility] [address] [place], [address] WBC (Bld) [#/Vol] 7.8 10*3/uL Normal 4.4-11.0 [facility] Comment on above: Performed By: #### L 500.4050, L100.0100, L502.0250, L500.4100 #### [facility] [address] [place], [address] Comprehensive Metabolic Prof [facility] 01-22-2024 Albumin [Mass/Vol] 4.0 g/dL Normal 3.2-5.0 [facility] Comment on above: Performed By: #### L 500.4050, L100.0100, L502.0250, L500.4100 #### [facility] [address] [place], [address] Albumin/Globulin [Mass ratio] 1.0 {ratio} Normal 0.9-2.4 [facility] Comment on above: Performed By: #### L 500.4050, L100.0100, L502.0250, L500.4100 #### [facility] [address] [place], [address] ALK P 100 U/L Normal 45-117 [facility] Comment on above: Performed By: #### L 500.4050, L100.0100, L502.0250, L500.4100 #### [facility] [address] [place], [address] ALT [Catalytic activity/Vol] 53 U/L Normal 16-61 [facility] Comment on above: Performed By: #### L 500.4050, L100.0100, L502.0250, L500.4100 #### [facility] [address] [place], [address] AST [Catalytic activity/Vol] 23 U/L Normal 15-37 [facility] Comment on above: Performed By: #### L 500.4050, L100.0100, L502.0250, L500.4100 #### [facility] [address] [place], [address] Bilirubin [Mass/Vol] 0.60 mg/dL Normal 0.20-1.00 [facility] Comment on above: Result Comment: For patients on eltrombopag therapy, use of Dimension [place] TBIL is not recommended. Performed By: #### L 500.4050, L100.0100, L502.0250, L500.4100 #### [facility] [address] [place], [address] BUN/CRE 17.2 RATIO Normal 10-20 [facility] Comment on above: Performed By: #### L 500.4050, L100.0100, L502.0250, L500.4100 #### [facility] [address] [place], [address] CA,Total 9.8 mg/dL Normal 8.5-10.1 [facility] Comment on above: Performed By: #### L 500.4050, L100.0100, L502.0250, L500.4100 #### [facility] [address] [place], [address] Chloride [Moles/Vol] 103 mmol/L Normal 98-107 [facility] Comment on above: Performed By: #### L 500.4050, L100.0100, L502.0250, L500.4100 #### [facility] [address] [place], [address] CO2 [Moles/Vol] 27.0 mmol/L Normal 21.0-32.0 [facility] Comment on above: Performed By: #### L 500.4050, L100.0100, L502.0250, L500.4100 #### [facility] [address] [place], [address] Creatinine [Mass/Vol] 0.87 mg/dL Normal 0.70-1.30 [facility] Comment on above: Result Comment: The validity of the calculated GFR GFRAA in patients over 70 years has not been determined. Clinical correlation is essential. Performed By: #### L 500.4050, L100.0100, L502.0250, L500.4100 #### [facility] [address] [place], [address] EST GFR - AA 126 mL/min Normal >60 [facility] Comment on above: Result Comment: Afri can Moldovan GFR Calc Performed By: #### L 500.4050, L100.0100, L502.0250, L500.4100 #### [facility] [address] [place], [address] GAP 6 Normal 5-15 [facility] Comment on above: Performed By: #### L 500.4050, L100.0100, L502.0250, L500.4100 #### [facility] [address] [place], [address] GFR/1.73 sq M.predicted among non-blacks MDRD (S/P/Bld) [Vol rate/Area] 104 mL/min/{1.73_m2} Normal >60 [facility] Comment on above: Result Comment: Non- GFR Calc Performed By: #### L 500.4050, L100.0100, L502.0250, L500.4100 #### [facility] [address] [place], [address] Globulin (S) [Mass/Vol] 4.1 g/dL Normal 2.2-4.2 [facility] Comment on above: Performed By: #### L 500.4050, L100.0100, L502.0250, L500.4100 #### [facility] [address] [place], [address] Glucose [Mass/Vol] 226 mg/dL High 74-106 [facility] Comment on above: Result Comment: Gluc ose result greater than or equal to 200 mg/dL suggests DIABETES MELLITUS per A.D.A. criteria. Performed By: #### L 500.4050, L100.0100, L502.0250, L500.4100 #### [facility] [address] [place], [address] Potassium [Moles/Vol] 4.3 mmol/L Normal 3.5-5.1 [facility] Comment on above: Performed By: #### L 500.4050, L100.0100, L502.0250, L500.4100 #### [facility] [address] [place], [address] Sodium [Moles/Vol] 136 mmol/L Normal 136-145 [facility] Comment on above: Performed By: #### L 500.4050, L100.0100, L502.0250, L500.4100 #### [facility] [address] [place], [place], [id number] T PROT 8.1 g/dL Normal 6.4-8.2 [facility] Comment on above: Performed By: #### L 500.4050, L100.0100, L502.0250, L500.4100 #### [facility] [address] [place], [address] Urea nitrogen [Mass/Vol] 15 mg/dL Normal 7-18 [facility] Comment on above: Performed By: #### L 500.4050, L100.0100, L502.0250, L500.4100 #### [facility] [address] [place], [place], [id number] Determination of erythrocyte mean corpuscular volume (MCV)Ordered By: Sarah Lopez on 01-22-2024 MCV (RBC) [Entitic vol] 87.1 fL 80-94 [facility] Erythrocyte distribution wid th ratioOrdered By: Sarah Lopez on 01-22-2024 Erythrocyte distribution width (RBC) [Ratio] 13.3 % 11.6-14.6 [facility] Erythrocyte distribution wid th standard deviationOrdered By: Sarahalberto Lopez on 01-22-2024 Erythrocyte distribution width (RBC) [Entitic vol] 42.5 fL 35.1-43.9 [facility] Hematocrit Auto (Bld) [Volum e fraction]Ordered By: Sarah Lopez on 01-22-2024 Hematocrit (Bld) [Volume fraction] 44.6 % 40-54 [facility] Immature granulocytes/100 WB C Auto (Bld)Ordered By: Sarah Lopez on 01-22-2024 Immature granulocytes/100 WBC (Bld) 0.400 % 0.0-0.9 [facility] Comment on above: IG% - Immature Granu locytes (promyelocytes, myelocytes and metamyelocytes) > 1% indicates that a LEFT SHIFT is Present. Laboratory - Chemistry and C hemistry - challengeOrdered By: Sarah Lopez on 01-22-2024 Albumin/Globulin [Mass ratio] 1.0 {ratio} 0.9-2.4 [facility] ALP [Catalytic activity/Vol] 100 U/L 45-117 [facility] ALT [Catalytic activity/Vol] 53 U/L 16-61 [facility] Cholesterol in HDL [Mass/Vol] 29 mg/dL >40 [facility] Comment on above: The drugs N-Acetylcy steine and Metamizole may falsely depress this assay. Reference Range HDL <40 mg/dL Low HDL Cholesterol HDL >or= 60 mg/dL High HDL Cholesterol Cholesterol in LDL [Mass/Vol] 25 mg/dL 0-130 [facility] CO2 [Moles/Vol] 27.0 mmol/L 21.0-32.0 [facility] Globulin (S) [Mass/Vol] 4.1 g/dL 2.2-4.2 [facility] Urea nitrogen/Creatinine [Mass ratio] 17.2 mg/mg 10-20 [facility] - Hematology and Cell countsOrdered By: Sarah Lopez on 01-22-2024 MCH (RBC) [Entitic mass] 28.5 pg 27.0-32.0 [facility] MCHC (RBC) [Mass/Vol] 32.7 g/dL 32-36 [facility] Nucleated RBC/100 WBC (Bld) [Ratio] 0 % 0-5 [facility] Platelet mean volume (Bld) [Entitic vol] 10.1 fL 6.2-12.0 [facility] Platelets (Bld) [#/Vol] 268 10*3/uL 150-450 [facility] Lipid Profileon 01-22-2024 Cholesterol [Mass/Vol] 125 mg/dL Normal 200 [facility] Comment on above: Result Comment: <200 mg/dL Desirable 200-240 mg/dL Borderline >240 mg/dL High Risk Performed By: #### L 500.4050, L100.0100, L502.0250, L500.4100 #### [facility] [address] [place], [address] Cholesterol in HDL [Mass/Vol] 29 mg/dL Low [facility] Comment on above: Result Comment: The drugs N-Acetylcysteine and Metamizole may falsely depress this assay. Reference Range HDL <40 mg/dL Low HDL Cholesterol HDL >or= 60 mg/dL High HDL Cholesterol Performed By: #### L 500.4050, L100.0100, L502.0250, L500.4100 #### [facility] [address] [place], [address] Cholesterol in LDL [Mass/Vol] 25 mg/dL Normal 0-130 [facility] Comment on above: Performed By: #### L 500.4050, L100.0100, L502.0250, L500.4100 #### [facility] [address] [place], [address] Cholesterol in VLDL [Mass/Vol] 71 mg/dL High 5-40 [facility] Comment on above: Performed By: #### L 500.4050, L100.0100, L502.0250, L500.4100 #### [facility] [address] [place], [address] Triglyceride [Mass/Vol] 353 mg/dL High [facility] Comment on above: Result Comment: The drugs N-Acetylcysteine and Metamizole may falsely depress this assay. Serum Triglycerides Reference Interval Normal <150 mg/dL Borderline high 150 - 199 mg/dL High 200 - 499 mg/dL Very High > or = 500 mg/dL Performed By: #### L 500.4050, L100.0100, L502.0250, L500.4100 #### [facility] [address] [place], [address] Microalb:Creat Ratio,Random URon 01-22-2024 Creatinine [Mass/Vol] 99.80 mg/dL Normal NO RAN GE EST. [facility] Comment on above: Performed By: #### L 500.4050, L100.0100, L502.0250, L500.4100 #### [facility] [address] [place], [address] MALB:CRE 47.4 mg/g CRE High <30 mg/g CRE [facility] Comment on above: Performed By: #### L 500.4050, L100.0100, L502.0250, L500.4100 #### [facility] [address] [place], [address] MICROALBUMIN,UR 47.3 mg/L Normal NO RANGE EST. [facility] Comment on above: Performed By: #### L 500.4050, L100.0100, L502.0250, L500.4100 #### [facility] [address] [place], [address] No Panel InformationOrdered By: Sarah Lopez on 01-22-2024 Estimated GFR (MDRD) Amer 126 mL/min >60 [facility] Comment on above: GFR Calc Estimated GFR (MDRD) Non-Af Amer 104 mL/min >60 [facility] Comment on above: Non- GFR Calc Urine Microalbumin/Creatini ne Ratio 47.4 mg/g CRE <30 [facility] VLDL Cholesterol 71 mg/dL 5-40 [facility] RBC Auto (Bld) [#/Vol]Ordere d By: Sarah Lopez on 01-22-2024 RBC (Bld) [#/Vol] 5.12 10*6/uL 4.6-6.2 [facility] Serum or plasma calcium pavel urement (mass/volume)Ordered By: Sarah Lopez on 01-22-2024 Calcium [Mass/Vol] 9.8 mg/dL 8.5-10.1 [facility] Serum or plasma creatinine m easurement (mass/volume)Ordered By: Sarah Lopez on 01-22-2024 Creatinine [Mass/Vol] 0.87 mg/dL 0.70-1.30 [facility] Comment on above: The validity of the calculated GFR & GFRAA in patients over 70 years has not been determined. Clinical correlation is essential. Serum or plasma urea nitroge n measurement (mass/volume)Ordered By: Sarah Lopez on 01-22-2024 Urea nitrogen [Mass/Vol] 15 mg/dL 7-18 [facility] Thin prep Papanicolaou smear with manual screeningOrdered By: Sarah Lopez on 01-22-2024 Thin prep Papanicolaou smear with manual screening 4.0 g/dL 3.2-5.0 [facility] Thin prep Papanicolaou smear with manual screening 23 U/L 15-37 [facility] Thin prep Papanicolaou smear with manual screening 6 5-15 [facility] Thin prep Papanicolaou smear with manual screening 47.3 mg/L NO RANGE EST. [facility] Urine creatinine measurement (mass/volume)Ordered By: Sarah Lopez on 01-22-2024 Creatinine (U) [Mass/Vol] 99.80 mg/dL NO RANGE EST. [facility] Internal Medicine Office Vis itodiane 01-21-2024 Internal Medicine Office Visit [facility] [address] [place] [address] [place] [address] OFFICE VISIT Date of Service: 01/28/24 MR#: [id number] Acct: [id number] Name: FARHAD MAYES Rep #: [id number] : 1985 Provider: Dr. Sarah jefferson MD Age/Sex: 38/M Location[place] [facility] [place] [facility] [place] Status: Signed Intake Vital Signs 09/07/23 09:18 01/28/24 08:27 Height 5 ft 9 in 5 ft 9 in Weight: 291 lb 8 oz BMI 43.0 BP 140/84 H Blood Pressure Location Lt brachial Position Sitting Respiration 16 Pulse 84 Pulse Source Monitor Temp 97.1 F L Temp Source Temporal Pulse Oximetry (%) 98 Oxygen Delivery Method room air Intake Visit Reasons: ozempic/metformin fu Chief Complaint: follow up General Helper Required: No Accompanied by: Self Is patient in pain?: No Allergies Seasonal Allergies: Uncoded Adverse Reaction (Verified 01/28/24 08:24) Other Medications loratadine 10 mg chewable tablet (Claritin) 10 mg PO DAILY 02/06/23 [History Confirmed 01/28/24] metformin 500 mg tablet,extended release 24 hr 500 mg PO BID #180 tabs 11/30/23 [Rx Confirmed 01/28/24] semaglutide 0.25 mg or 0.5 mg (2 mg/3 mL) subcutaneous pen injector (Ozempic) 0.5 mg (0.736 mL) subcut QWEEK #3 mL 01/28/24 [Rx Confirmed 01/28/24] [facility] Gastrointestinal problem Influenza A Irritable bowel syndrome Sleep apnea Type 2 diabetes mellitus Surgical History H/O hernia repair History of cholecystectomy Family History Father Cancer prostate Diabetes Mother Diabetes Hypertension Kidney disease Parkinsons disease Grandfather Heart disease Social History household members: spouse and children current occupational status: employed 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 He is up to date on his routine blood work. He is not due for any screening. He previously declined his COVID or flu vaccines. He thinks his tetanus was done within the last 5 years. He doesn't smoke and does need refills. He reports he is eating healthier than he was, but thinks he can do better. He is staying active. He doesn't check his sugars at home regularly. He reports he started to, but things got hectic and he got out of the habit. At his last office visit, mounjaro was ordered, but it was not affordable for him. He was then ordered ozempic. He reports that he was able to get that and started it around the beginning of December. He has missed one dose and needs refills. He reports he has been having some increased diarrhea, but reports it is manageable. He denies any problems with the medication and was doing the injections every Thursday. He does try to monitor his carbohydrate and sugar intake, stating he has cut back on his pop intake and monster energy drinks. He is up to date on his diabetic eye exam and doesn't see podiatry. He reports his allergies are well controlled on his claritin. He takes it regularly in the mornings and reports it keeps it controlled. The patient has obstructive sleep apnea. He wears his CPAP every night and does well with it. He has no other questions or concerns at this time. ROS Const Constitutional: Positive for weakness (occasional) and weight change (6 pound weight loss); No body ache, chills, excessive sweating, fatigue, fever(s), frequent falls, headache(s), snoring or change in appetite Eyes Eyes: No blurry vision, change in vision, eye pain or Light sensitivity ENT ENT: No abnormal hearing, ear or mastoid pain, tinnitus, nasal congestion, headache(s), neck pain or sore throat Resp Respiratory: No cough, shortness of breath, snoring or wheezing Cardio Cardiology: No chest pain at rest, chest pain with exertion, excessive sweating, dyspnea on exertion, lightheadedness, orthopnea, palpitations or other (no leg swelling) Gastro GI: Positive for diarrhea; No abdominal pain, change in bowel habits, constipation, cramping, nausea/dyspepsia or vomiting Genitourinary Male: No difficulty urinating, burning urination, painful urination, urinary incontinence or urinary frequency Musc Musculoskeletal: No abnormal gait, joint pain, back pain, limited range of motion, muscle weakness, neck pain, numbne (more content not included)... Normal [facility] Absolute lymphocyte countOrd ered By: Ellen Arechiga on 01-24-2023 Lymphocytes Auto (Unsp spec) [#/Vol] 1.92 10*3/uL 0.83-4.51 [facility] Basophil percentageOrdered B y: Ellen Arechiga on 01-24-2023 Basophils/100 WBC (Bld) 0.4 % 0-1 [facility] Chloride [Moles/Vol] 100 mmol/L 98-107 [facility] Eosinophils/100 WBC (Bld) 1.1 % 0-5 [facility] Glucose [Mass/Vol] 291 mg/dL 74-106 [facility] Comment on above: Glucose result great er than or equal to 200 mg/dLsuggests DIABETES MELLITUS per A.D.A. criteria. Neutrophils (Bld) [#/Vol] 4.9 10*3/uL 2.0-7.7 [facility] Neutrophils/100 WBC (Bld) 66.1 % 47-70 [facility] Potassium [Moles/Vol] 3.6 mmol/L 3.5-5.1 [facility] Sodium [Moles/Vol] 132 mmol/L 136-145 [facility] WBC (Bld) [#/Vol] 7.4 10*3/uL 4.4-11.0 [facility] Blood erythrocytes count (nu mber/volume)Ordered By: Ellen Arechiga on 01-24-2023 RBC (Bld) [#/Vol] 5.56 10*6/uL 4.6-6.2 [facility] Blood hemoglobin measurement (mass/volume)Ordered By: Ellen Arechiga on 01-24-2023 Hemoglobin (Bld) [Mass/Vol] 16.1 g/dL 13.0-16.5 [facility] Blood lymphocytes/100 leukoc ytesOrdered By: Ellen Arechiga on 01-24-2023 Lymphocytes/100 WBC (Bld) 26.1 % 19-41 [facility] Blood monocytes/100 leukocyt esOrdered By: Ellen Arechiga on 01-24-2023 Monocytes/100 WBC (Bld) 4.9 % 0-10 [facility] Blood platelet mean volumeOr dered By: Ellen Arechiga on 01-24-2023 Platelet mean volume (Bld) [Entitic vol] 9.7 fL 6.2-12.0 [facility] Determination of erythrocyte mean corpuscular volume (MCV)Ordered By: Ellen Arechiga on 01-24-2023 MCV (RBC) [Entitic vol] 84.4 fL 80-94 [facility] Hematocrit Auto (Bld) [Volum e fraction]Ordered By: Ellen Arechiga on 01-24-2023 Hematocrit (Bld) [Volume fraction] 46.9 % 40-54 [facility] Laboratory - Chemistry and C hemistry - challengeOrdered By: Ellen Arechiga on 01-24-2023 CO2 [Moles/Vol] 25.0 mmol/L 21.0-32.0 [facility] Urea nitrogen/Creatinine [Mass ratio] 14.5 mg/mg 10-20 [facility] - Hematology and Cell countsOrdered By: Ellen Arechiga on 01-24-2023 Erythrocyte distribution width (RBC) [Entitic vol] 40.3 fL 35.1-43.9 [facility] Erythrocyte distribution width (RBC) [Ratio] 13.1 % 11.6-14.6 [facility] Immature granulocytes/100 WBC (Bld) 1.400 % 0.0-0.9 [facility] Comment on above: IG% - Immature Granu locytes (promyelocytes, myelocytes and metamyelocytes) > 1% indicates that a LEFT SHIFT is Present. MCH (RBC) [Entitic mass] 29.0 pg 27.0-32.0 [facility] Nucleated RBC/100 WBC (Bld) [Ratio] 0 % 0-5 [facility] MCHC Auto (RBC) [Mass/Vol]Or dered By: Ellen Arechiga on 01-24-2023 MCHC (RBC) [Mass/Vol] 34.3 g/dL 32-36 [facility] No Panel InformationOrdered By: Ellen Arechiga on 01-24-2023 Estimated Creatinine Clearance Calc 121.86 ml/min [facility] Estimated GFR (MDRD) Amer 134 mL/min >60 [facility] Comment on above: GFR Calc Estimated GFR (MDRD) Non-Af Amer 111 mL/min >60 [facility] Comment on above: Non- GFR Calc Platelets bldOrdered By: Irineo Arechiga on 01-24-2023 Platelets (Bld) [#/Vol] 248 10*3/uL 150-450 [facility] Serum or plasma acetone pavel urement (mass/volume)Ordered By: Ellen Arechiga on 01-24-2023 Acetone [Mass/Vol] Negative NEG [facility] Serum or plasma calcium pavel urement (mass/volume)Ordered By: Ellen Arechiga on 01-24-2023 Calcium [Mass/Vol] 9.6 mg/dL 8.5-10.1 [facility] Serum or plasma creatinine m easurement (mass/volume)Ordered By: Ellen Arechiga on 01-24-2023 Creatinine [Mass/Vol] 0.83 mg/dL 0.70-1.30 [facility] Comment on above: The validity of the calculated GFR & GFRAA in patients over 70 years has not been determined. Clinical correlation is essential. Serum or plasma urea nitroge n measurement (mass/volume)Ordered By: Ellen Arechiga on 01-24-2023 Urea nitrogen [Mass/Vol] 12 mg/dL 7-18 [facility] Thin prep Papanicolaou smear with manual screeningOrdered By: Ellen Arechiga on 01-24-2023 Thin prep Papanicolaou smear with manual screening 7 5-15 [facility] Rapid Flu (54948 x 2)Ordered By: Unique Redding on 11-11-2018 FLUAV Ag IA Ql (Throat) Negative [facility] Work Phone: Office Visit: f/u lap choleo n 06-11-2017 Documentation of current medications (procedure) Done Invalid Interpretation Code [facility] Work Phone: Documentation of current medications (procedure) T Invalid Interpretation Code [facility] Work Phone: Fall risk assessment No Invalid Interpretation Code [facility] Work Phone: Tobacco smoking status NHIS Never Invalid Interpretation Code [facility] Work Phone: Tobacco use HS Former smoker Invalid Interpretation Code [facility] Work Phone: GALLBLADDERon 06-04-2017 GALLBLADDER See Note Normal [facility] Work Phone: Comment on above: Patient: SAMIR MAYES : 1985 (31/M) Acct Num: [id number] Phys: Radha JONES,Alxe Unit Num: [id number] [facility] [facility] Specimen: [id number] Received: 06/04/171455 Spec Type: GALLBLADDE TISSUES TISSUES: GROSS DESCRIPTION Received is one container labeled with the patient's name and designated gallbladder. The specimen consists of a gallbladder measuring 10 cm in lengthand up to 4 cm in diameter. The external surface is pink-kumari, smooth and glistening for the most part. Focally it is granular, hemorrhagic and contains cautery artifact. The gallbladder contains green-yellow mucoid bile. No stonesare identified in the container or in the gallbladder. The mucosa is bile-stained and without any mass lesions. The gallbladder wall measures up to 0.2 cm in thickness. Branch Account Executive sections from the gallbladder and the cystic duct are submitted in one cassette. / SABRINA:amalia 06/05/17 TC:3 CPT: 66299 HEADER OPERATION: Cholecystectomy, lap PRE-OP DIAGNOSIS: Gallbladder sludge TISSUE SUBMITTED: Gallbladder MICROSCOPIC DESCRIPTION Slides are reviewed. MICROSCOPIC DIAGNOSIS Gallbladder: Mild chronic cholecystitis. No stones are identified in the container or in the gallbladder. SJ:amalia 06/08/17 Signed Andrey Rosa 06/08/17 [facility] E[address]verlify[address] [facility] [place], [address] Office Visiton 05-29-2017 Fall risk assessment No [facility] Work Phone: Protein mass conc T [facility] [employer] Work Phone: Protein mass conc Done [facility] Work Phone: Tobacco smoking status NHIS Never [facility] Work Phone: Tobacco smoking status [facility] Former smoker [facility] Work Phone: JORDY CULTURE-STOOL ([id number])on 05-14-2017 Bacteria identified Cx Nom (Unsp spec) NSS Normal [facility] Work Phone: Comment on above: No Salmonella or Heidy gella recovered. PATIENT NOT FASTINGP ERFORMED BY: LYNETTE [facility] Jjqnvb2533 [facility] [id number] Information: SRC:ST SRC:ST Bacteria identified Cx Nom (Unsp spec) NCI Normal [facility] Work Phone: Comment on above: No Campylobacter spe cies isolated. PATIENT NOT FASTINGP ERFORMED BY: LYNETTE [facility] Ctymln0524 [address] RoadDublin [place] [id number] Information: SRC:ST SRC:ST Campylobacter sp identified Org specific cx Nom (St) Final report Normal [facility] Work Phone: Comment on above: PATIENT NOT FASTINGP ERFORMED BY: CB [facility] Lhzkgw2021 [facility] [place] [id number] Information: SRC:ST SRC:ST E. coli shiga-like toxin IA Ql (St) Negative Normal [facility] Work Phone: Comment on above: PATIENT NOT FASTINGP ERFORMED BY: LYNETTE [facility] Ygcnsb5537 [address] RoadDublin [place] [id number] Information: SRC:ST SRC:ST Salmonella and Shigella sp identified Org specific cx Nom (St) Final report Normal [facility] Work Phone: Comment on above: PATIENT NOT FASTINGP ERFORMED BY: LYNETTE [facility] Ivyapj6591 [facility] [place] [id number] Information: SRC:ST SRC:ST C-REACTIVE PROTEIN (00307)on 05-14-2017 CRP mass conc 8.5 mg/L Abnormal 0.0-4.9 [facility] Work Phone: Comment on above: PATIENT NOT FASTINGP ERFORMED BY: LYNETTE [facility] Izolbn3124 [facility] [place] [id number] CBC with auto diff (60325)on 05-14-2017 Basophils #/vol (Bld) 0.0 {x10E3/uL} Normal 0.0-0.2 [facility] Work Phone: Comment on above: PATIENT NOT FASTINGP ERFORMED BY: LYNETTE [facility] Uzggym5312 [address] RoadD[address] [place] [id number] Basophils/100 WBC (Bld) 0 % Normal [facility] Work Phone: Comment on above: PATIENT NOT FASTINGP ERFORMED BY: LYNETTE [facility] Owgmfb9552 [address] RoadDublin [place] [id number] Eosinophils #/vol (Bld) 0.1 {x10E3/uL} Normal 0.0-0.4 [facility] Work Phone: Comment on above: PATIENT NOT FASTINGP ERFORMED BY: LYNETTE [facility] Uijlbo3497 [address] RoadDublin [place] [id number] Eosinophils/100 WBC (Bld) 2 % Normal [facility] Work Phone: Comment on above: PATIENT NOT FASTINGP ERFORMED BY: LYNETTE [facility] Ynhitj6300 [address] RoadDublin [place] [id number] Erythrocyte distribution width Ratio (RBC) 14.2 % Normal 12.3-15.4 [facility] Work Phone: Comment on above: PATIENT NOT FASTINGP ERFORMED BY: LYNETTE [facility] Xwfnth4176 [address] RoadDuin [place] [id number] Hematocrit Volume Fraction (Bld) 42.4 % Normal 37.5-51.0 [facility] Work Phone: Comment on above: PATIENT NOT FASTINGP ERFORMED BY: LYNETTE [facility] Wqkxxl7416 [address] RoadDublin [place] [id number] Hemoglobin mass conc (Bld) 14.4 g/dL Normal 12.6-17.7 [facility] Work Phone: Comment on above: PATIENT NOT FASTINGP ERFORMED BY: LYNETTE [facility] Rpdwmy0075 [address] RoadDublin [place] [id number] Immature granulocytes #/vol (Bld) 0.0 {x10E3/uL} Normal 0.0-0.1 [facility] Work Phone: Comment on above: PATIENT NOT FASTINGP ERFORMED BY: CB [facility] Mdjvsv9614 [address] RoadDublin [place] [id number] Immature granulocytes/100 WBC (Bld) 0 % Normal [facility] Work Phone: Comment on above: PATIENT NOT FASTINGP ERFORMED BY: LYNETTE [facility] Pvlurw0420 [address] RoadDublin [place] [id number] Lymphocytes #/vol (Bld) 1.6 {x10E3/uL} Normal 0.7-3.1 [facility] Work Phone: Comment on above: PATIENT NOT FASTINGP ERFORMED BY: LYNETTE [facility] Ikeqeo1060 [address] RoadD[address] [place] [id number] Lymphocytes/100 WBC (Bld) 23 % Normal [facility] Work Phone: Comment on above: PATIENT NOT FASTINGP ERFORMED BY: LYNETTE [facility] Vuxzdp5904 [address]bl[address] [place] [id number] MCH Entitic mass (RBC) 28.7 pg Normal 26.6-33.0 [facility] Work Phone: Comment on above: PATIENT NOT FASTINGP ERFORMED BY: LYNETTE [facility] Hqveqj8395 [address] RoadHighlands[facility]Cashiers Hospitalin [place] [id number] MCHC mass conc (RBC) 34.0 g/dL Normal 31.5-35.7 Comp [facility] Work Phone: Comment on above: PATIENT NOT FASTINGP ERFORMED BY: LYNETTE [facility] Jxqxlt4538 [facility]in [place] [id number] MCV Entitic volume (RBC) 85 fL Normal 79-97 [facility] Work Phone: Comment on above: PATIENT NOT FASTINGP ERFORMED BY: LYNETTE [facility] Hnzlmn7718 [facility]in [place] [id number] Monocytes #/vol (Bld) 0.4 {x10E3/uL} Normal 0.1-0.9 [facility] Work Phone: Comment on above: PATIENT NOT FASTINGP ERFORMED BY: LYNETTE [facility] Kdwnmg0770 [address] RoadDublin [place] [id number] Monocytes/100 WBC (Bld) 6 % Normal [facility] Work Phone: Comment on above: PATIENT NOT FASTINGP ERFORMED BY: LYNETTE [facility] Dqftrg8202 [address] RoadDublin [place] [id number] Neutrophils #/vol (Bld) 4.7 {x10E3/uL} Normal 1.4-7.0 [facility] Work Phone: Comment on above: PATIENT NOT FASTINGP ERFORMED BY: [facility] Oeqszb9848 [facility] [id number] Neutrophils/100 WBC (Bld) 69 % Normal [facility] Work Phone: Comment on above: PATIENT NOT FASTINGP ERFORMED BY: [facility] Azqbng6938 [facility] [id number] Platelets #/vol (Bld) 236 {x10E3/uL} Normal 150-379 [facility] Work Phone: Comment on above: PATIENT NOT FASTINGP ERFORMED BY: [facility] Hnaonq0927 [facility] [id number] RBC #/vol (Bld) 5.01 {x10E6/uL} Normal 4.14-5.80 [facility] Work Phone: Comment on above: PATIENT NOT FASTINGP ERFORMED BY: AndrésB[facility] Fxkbck3719 [facility] [id number] WBC #/vol (Bld) 6.8 {x10E3/uL} Normal 3.4-10.8 [facility] Work Phone: Comment on above: PATIENT NOT FASTINGP ERFORMED BY: nAdrésB[facility] Itxuhh0238 [facility] [id number] Clostridium difficile Toxin A+B, EIA (62131)on 05-14-2017 C. difficile toxin A+B IA Ql (St) Negative Normal [facility] Work Phone: Comment on above: PATIENT NOT FASTINGP ERFORMED BY: [facility] Jsxqex0950 [facility] [id number] HELICOBACTER PYLORI ANTIBODY PROFILE IgG, IgM, IgA (17932)on 05-14-2017 H. pylori IgG IA Qn (S) {index_val} Normal 0.0-0.8 [facility] Work Phone: Comment on above: Negative <0.9 Indete rminate 0.9 - 1.0 Positive >1.0 PATIENT NOT FASTINGP ERFORMED BY: CB [facility] Mhnijr5669 [facility]in [place] [id number] LEUKOCYTE COUNT, FECAL ([id number])on 05-14-2017 WBC LM Ql (St) Final report Normal Compre[facility] ive [facility] Work Phone: Comment on above: PATIENT NOT FASTINGP ERFORMED BY: LYNETTE [facility] Wdmxxw9037 [address] RoadHighlands[facility]Cash[facility] Hospitalin [place] [id number] WBC LM Ql (St) NWBC Normal Comprehens lisa [facility] Work Phone: Comment on above: No white blood cells seen. PATIENT NOT FASTINGP ERFORMED BY: LYNETTE [facility] Lxeyls5010 [facility]in [place] [id number] Metabolic Panel, Comprehensi ve ([id number])on 05-14-2017 Albumin mass conc 4.5 g/dL Normal 3.5-5.5 [facility]preh [facility] Work Phone: Comment on above: PATIENT NOT FASTINGP ERFORMED BY: LYNETTE [facility] Xshlnj7657 [facility] [id number] Albumin/Globulin mass ratio 1.5 {ratio} Normal 1.2-2.2 [facility] Work Phone: Comment on above: PATIENT NOT FASTINGP ERFORMED BY: LYNETTE [facility] Hjrwic4619 [facility] [id number] ALP enzyme act/vol 98 [iU]/L Normal 39-117 Compre [facility] Work Phone: Comment on above: PATIENT NOT FASTINGP ERFORMED BY: [facility] Nowvra9274 [facility] [id number] ALT enzyme act/vol 35 [iU]/L Normal 0-44 Compre [facility] Work Phone: Comment on above: PATIENT NOT FASTINGP ERFORMED BY: [facility] Cxjirj0095 [facility] [id number] AST enzyme act/vol 20 [iU]/L Normal 0-40 Compre [facility] Work Phone: Comment on above: PATIENT NOT FASTINGP ERFORMED BY: LYNETTE [facility] Etpwie3083 [address] RoadDublin [place] [id number] Bilirubin mass conc 0.3 mg/dL Normal 0.0-1.2 Compr ehensive [facility] Work Phone: Comment on above: PATIENT NOT FASTINGP ERFORMED BY: LYNETTE [facility] Zwwyha2401 [address] RoadD[address] [place] [id number] Calcium mass conc 9.8 mg/dL Normal 8.7-10.2 Compreh [facility] Work Phone: Comment on above: PATIENT NOT FASTINGP ERFORMED BY: CB [facility] Klwutb2495 [address] RoadD[address] [place] [id number] Chloride molar conc 99 mmol/L Normal 96-106 Compr ehensive [facility] Work Phone: Comment on above: PATIENT NOT FASTINGP ERFORMED BY: LYNETTE [facility] Pyyuia1831 [address] RoadD[address] [place] [id number] CO2 molar conc 24 mmol/L Normal 18-29 Comprehens [facility] Work Phone: Comment on above: PATIENT NOT FASTINGP ERFORMED BY: LYNETTE [facility] Tramwb8937 [address] RoadD[address] [place] [id number] Creatinine mass conc 0.77 mg/dL Normal 0.76-1.27 Comp rehensive [facility] Work Phone: Comment on above: PATIENT NOT FASTINGP ERFORMED BY: LYNETTE [facility] Ggvqhm7353 [address] RoadDuin [place] [id number] GFR/1.73 sq M predicted among blacks CKD-EPI vol rate/area (S/P/Bld) 140 mL/min/1.73 Normal Comprehensiv e [facility] Work Phone: Comment on above: PATIENT NOT FASTINGP ERFORMED BY: CB [facility] Jdeaod0285 [address] RoadD[address] [place] [id number] GFR/1.73 sq M predicted among non-blacks CKD-EPI vol rate/area (S/P/Bld) 121 mL/min/1.73 Normal [facility] Work Phone: Comment on above: PATIENT NOT FASTINGP ERFORMED BY: LYNETTE [facility] Ebknfb3987 [address] RoadD[address] [place] [id number] Globulin mass conc (S) 3.1 g/dL Normal 1.5-4.5 [facility] Work Phone: Comment on above: PATIENT NOT FASTINGP ERFORMED BY: LYNETTE [facility] Wcthml0776 [address] RoadD[address] [place] [id number] Glucose mass conc 125 mg/dL Abnormal 65-99 Compreh ensive [facility] Work Phone: Comment on above: PATIENT NOT FASTINGP ERFORMED BY: LYNETTE [facility] Qcuajn0727 [address] RoadD[address] [place] [id number] Potassium molar conc 4.7 mmol/L Normal 3.5-5.2 Comp rehensive [facility] Work Phone: Comment on above: PATIENT NOT FASTINGP ERFORMED BY: LYNETTE [facility] Nfowbf4568 [address] RoadD[address] [place] [id number] Protein mass conc 7.6 g/dL Normal 6.0-8.5 Compreh ensive [facility] Work Phone: Comment on above: PATIENT NOT FASTINGP ERFORMED BY: [facility] Kskxfd2707 [address] RoadD[address] [place] [id number] Sodium molar conc 140 mmol/L Normal 134-144 Compreh ensive [facility] Work Phone: Comment on above: PATIENT NOT FASTINGP ERFORMED BY: LYNETTE [facility] Tfappb8182 [address] RoadD[address] [place] [id number] Urea nitrogen mass conc 13 mg/dL Normal 6-20 [facility] Work Phone: Comment on above: PATIENT NOT FASTINGP ERFORMED BY: CB [facility] Grbtak2785 [address] RoadD[address] [place] [id number] Urea nitrogen/Creatinine mass ratio 17 mg/mg Normal 9-20 [facility] Work Phone: Comment on above: PATIENT NOT FASTINGP ERFORMED BY: LYNETTE [facility] Iijkng6[address] Jay RoadDublin [place] [id number] OCCULT BLOOD FECES SCREEN (2 [id number])on 05-14-2017 Lower GI hemoglobin IA Ql (St) Negative Normal [facility] Work Phone: Comment on above: PATIENT NOT FASTINGP ERFORMED BY: [facility]6[address] [facility] [id number] OVA & PARASITE DIR SMEAR ([phone])on 05-14-2017 Ova and parasites identified Concentration Nom (St) NOCP Normal [facility] Work Phone: Comment on above: No ova, cysts, or pa rasites seen. PATIENT NOT FASTINGP ERFORMED BY: LYNETTE [facility]6[address] [facility] [id number] Ova and parasites identified LM Nom (Unsp spec) Final report Normal [facility] Work Phone: Comment on above: These results were o btained using wet preparation(s) and trichromestained smear. This test does not include testing for Cryptosporidiumparvum, Cyclospora, or Microsporidia. PATIENT NOT FASTINGP ERFORMED BY: LYNETTE [facility] [id number] SED RATE ERYTHROCYTE ([id number]) on 05-14-2017 ESR Velocity (Bld) 11 mm/h Normal 0-15 [facility] Internal Medicine Work Phone: Comment on above: PATIENT NOT FASTINGP ERFORMED BY: [facility]6[address] [facility] [id number] FEGMB-ZEFTBRIGOGK-NSXBQ (821 [id number])on 06-22-2015 AFP.tumor marker mass conc 2.3 ng/mL Normal 0.0-8.3 [facility] Work Phone: Comment on above: Rajani ECLIA methodol ogy PATIENT NOT FASTINGP ERFORMED BY: [facility]6[address] [facility] [id number] HEPATITIS PANEL ([id number])on HAV IgM IA Ql Negative Normal Comprehensi ve Internal Medicine Work Phone: Comment on above: PATIENT NOT FASTINGP ERFORMED BY: [facility]6[address] [facility] [id number] HBV core IgM IA Ql Negative Normal Compre [facility] Internal Medicine Work Phone: Comment on above: PATIENT NOT FASTINGP ERFORMED BY: LYNETTE [facility]6[address] [facility] [id number] HBV surface Ag IA Ql Negative Normal Comp rehensive Internal Medicine Work Phone: Comment on above: PATIENT NOT FASTINGP ERFORMED BY: [facility]6[address] [facility] [id number] HCV Ab Signal/Cutoff IA RelACnc {ratio} Normal 0.0-0.9 [facility] Work Phone: Comment on above: Negative: < 0.8 Inde terminate: 0.8 - 0.9 Positive: > 0.9 . In order to reduce the incidence of a false positive result, the CDC recommends that all s/co ratios between 1.0 and 10.9 be confirmed by a more specific supplemental or PCR testing. [facility] Ab w/Reflex to Verification test #[id number]. PATIENT NOT FASTINGP ERFORMED BY: [facility]6[address] [facility] [id number] Lipid Panel ([id number])on 2014 Cholesterol in HDL mass conc 22 mg/dL Abnormal [facility] Internal Medicine Work Phone: Comment on above: According to ATP-III Guidelines, HDL-C >59 mg/dL is considered anegative risk factor for CHD. PATIENT NOT FASTINGP ERFORMED BY: [facility]6[address] [facility] [id number] Cholesterol in VLDL mass conc VLDLCH Normal 5-40 [facility] Work Phone: Comment on above: The calculation for the VLDL cholesterol is not valid whentriglyceride level is >400 mg/dL.Triglyceride result indicated is too high for an accurate LDLcholesterol estimation. PATIENT NOT FASTINGP ERFORMED BY: [facility]6[address] [facility] [id number] Cholesterol mass conc 133 mg/dL Normal 100-199 [facility] Internal Medicine Work Phone: Comment on above: PATIENT NOT FASTINGP ERFORMED BY: [facility]6[address] [facility] [id number] Triglyceride mass conc 428 mg/dL Abnormal 0-149 [facility] Work Phone: Comment on above: PATIENT NOT FASTINGP ERFORMED BY: LYNETTE Lorenzolin6[address] [facility] [id number] Metabolic Panel, Comprehensi ve ([id number])on 06-22-2015 Albumin mass conc 4.5 g/dL Normal 3.5-5.5 Compreh [facility] Work Phone: Comment on above: PATIENT NOT FASTINGP ERFORMED BY: LYNETTE [facility]CoWe[facility] HospitalWnqdim7576 [facility] [id number] Information: [id number] Albumin/Globulin mass ratio 1.5 {ratio} Normal 1.1-2.5 [facility] Work Phone: Comment on above: PATIENT NOT FASTINGP ERFORMED BY: LYNETTE [facility]6[address] [facility] [id number] Information: [id number] ALP enzyme act/vol 97 [iU]/L Normal 39-117 Compre [facility] Internal Medicine Work Phone: Comment on above: PATIENT NOT FASTINGP ERFORMED BY: LYNETTE Rowe Bzcqer8435 [facility] [id number] Information: [id number] ALT enzyme act/vol 44 [iU]/L Normal 0-44 Compre [facility] Internal Medicine Work Phone: Comment on above: PATIENT NOT FASTINGP ERFORMED BY: LYNETTE LabCoWeisman [facility] Rehabilitation HospitalUxsyas3891 [facility] [id number] Information: [id number] AST enzyme act/vol 24 [iU]/L Normal 0-40 Compre [facility] Internal Medicine Work Phone: Comment on above: PATIENT NOT FASTINGP ERFORMED BY: LYNETTE [facility]6[address] [facility] [id number] Information: [id number] Bilirubin mass conc 0.3 mg/dL Normal 0.0-1.2 Compr [facility] Internal Medicine Work Phone: Comment on above: PATIENT NOT FASTINGP ERFORMED BY: CB [facility] Rumtmx97[address] [facility]in [place] [id number] Information: [id number] Calcium mass conc 10.0 mg/dL Normal 8.7-10.2 Compreh ensive Internal Medicine Work Phone: Comment on above: PATIENT NOT FASTINGP ERFORMED BY: CB [facility] Mtjytv0493 [facility] [id number] Information: [id number] Chloride molar conc 103 mmol/L Normal 97-108 Compr ehensive Internal Medicine Work Phone: Comment on above: PATIENT NOT FASTINGP ERFORMED BY: CB [facility] Ydmzbg7377 [facility] [id number] Information: [id number] CO2 molar conc 19 mmol/L Normal 18-29 Comprehens lisa Internal Medicine Work Phone: Comment on above: PATIENT NOT FASTINGP ERFORMED BY: CB [facility] Wkpecz7542 [facility] [id number] Information: [id number] Creatinine mass conc 0.91 mg/dL Normal 0.76-1.27 Comp rehensive Internal Medicine Work Phone: Comment on above: PATIENT NOT FASTINGP ERFORMED BY: CB [facility] Ythloe1751 [facility] [id number] Information: [id number] GFR/1.73 sq M predicted among blacks CKD-EPI vol rate/area (S/P/Bld) 131 mL/min/1.73 Normal Comprehensiv e Internal Medicine Work Phone: Comment on above: PATIENT NOT FASTINGP ERFORMED BY: CB [facility] Aoaubm3061 [facility]in [place] [id number] Information: [id number] GFR/1.73 sq M predicted among non-blacks CKD-EPI vol rate/area (S/P/Bld) 113 mL/min/1.73 Normal [facility] Work Phone: Comment on above: PATIENT NOT FASTINGP ERFORMED BY: LYNETTE Leo6[address] [facility] [id number] Information: [id number] Globulin mass conc (S) 3.1 g/dL Normal 1.5-4.5 [facility] Work Phone: Comment on above: PATIENT NOT FASTINGP ERFORMED BY: LYNETTE BowenCo Fhkguv6650 [facility] [id number] Information: [id number] Glucose mass conc 86 mg/dL Normal 65-99 Compreh ensive Internal Medicine Work Phone: Comment on above: PATIENT NOT FASTINGP ERFORMED BY: LYNETTE Lorenzolin6370 [facility] [id number] Information: [id number] Potassium molar conc 4.3 mmol/L Normal 3.5-5.2 Comp rehensive Internal Medicine Work Phone: Comment on above: PATIENT NOT FASTINGP ERFORMED BY: LYNETTE Rowe Fsapih1603 [facility] [id number] Information: [id number] Protein mass conc 7.6 g/dL Normal 6.0-8.5 Compreh ensive Internal Medicine Work Phone: Comment on above: PATIENT NOT FASTINGP ERFORMED BY: LYNETTE Rowe Wzwobd7120 [facility] [id number] Information: [id number] Sodium molar conc 144 mmol/L Normal 134-144 Compreh ensive Internal Medicine Work Phone: Comment on above: PATIENT NOT FASTINGP ERFORMED BY: LYNETTE [facility] Gkbfxx1792 [facility] [id number] Information: [id number] Urea nitrogen mass conc 13 mg/dL Normal 6-20 [facility] Work Phone: Comment on above: PATIENT NOT FASTINGP ERFORMED BY: LYNETTE [facility] Ztcnuc4951 [facility] [id number] Information: [id number] Urea nitrogen/Creatinine mass ratio 14 mg/mg Normal 8-19 [facility] Work Phone: Comment on above: PATIENT NOT FASTINGP ERFORMED BY: LYNETTE [facility] Lvffto6277 [facility] [id number] Information: [id number] Vital Signs Date Time Vital Sign Value Performing Clinician Facility 05-26-2025 08:34-0400 Body height 175.[address] Sarah Lopez MD Work Phone: [facility] 05-26-2025 08:34-0400 Body mass index (BMI) [Ratio] 41.2 kg/m2 Dr. Sarah Lopez MD Work Phone: [facility] 05-26-2025 08:34-0400 Body temperature 98.2 [degF] Dr. Sarah Lopez MD Work Phone: [facility] 05-26-2025 08:34-0400 Body weight 126.[address] Sarah Lopez MD Work Phone: [facility] 05-26-2025 08:34-0400 Diastolic blood pressure 80 mm[Hg] Dr. Sarah Lopez MD Work Phone: [facility] 05-26-2025 08:34-0400 Heart rate 82 /min Dr. Sarah Lopez MD Work Phone: [facility] 05-26-2025 08:34-0400 Respiratory rate 16 /min Dr. Sarah Lopez MD Work Phone: [facility] 05-26-2025 08:34-0400 SaO2% (BldA) [Mass fraction] 96 % Dr. Sarah Lopez MD Work Phone: [facility] 05-26-2025 08:34-0400 Systolic blood pressure 122 mm[Hg] Dr. Sarah Lopez MD Work Phone: [facility] 02-03-2025 09:03-0400 Body temperature 98.01 [degF] Kiara Moomaw ROUTE SALES DRIVER.BUTADIENE CONVERTOR OPERATOR Work Phone: [facility] 02-03-2025 09:03-0400 Body weight 129.7 kg Kiara Moomaw ROUTE SALES DRIVER.BUTADIENE CONVERTOR OPERATOR Work Phone: [facility] 02-03-2025 09:03-0400 Diastolic blood pressure 87 mm[Hg] Kiara Moomaw ROUTE SALES DRIVER.BUTADIENE CONVERTOR OPERATOR Work Phone: [facility] 02-03-2025 09:03-0400 Heart rate 95 /min Kiara Moomaw ROUTE SALES DRIVER.BUTADIENE CONVERTOR OPERATOR Work Phone: [facility] 02-03-2025 09:03-0400 Respiratory rate 18 /min Kiara Moomaw ROUTE SALES DRIVER.BUTADIENE CONVERTOR OPERATOR Work Phone: [facility] 02-03-2025 09:03-0400 SaO2% (BldA) [Mass fraction] 99 % Kiara Moomaw ROUTE SALES DRIVER.BUTADIENE CONVERTOR OPERATOR Work Phone: [facility] 02-03-2025 09:03-0400 Systolic blood pressure 132 mm[Hg] Kiara Moomaw ROUTE SALES DRIVER.BUTADIENE CONVERTOR OPERATOR Work Phone: [facility] 12-02-2024 09:22-0500 Body temperature 97.9 [degF] Liz Murcia ROUTE SALES DRIVER.BUTADIENE CONVERTOR OPERATOR Work Phone: [facility] 12-02-2024 09:22-0500 Body weight 128.4 kg Liz Murcia ROUTE SALES DRIVER.BUTADIENE CONVERTOR OPERATOR Work Phone: [facility] 12-02-2024 09:22-0500 Diastolic blood pressure 88 mm[Hg] Liz Murcia ROUTE SALES DRIVER.BUTADIENE CONVERTOR OPERATOR Work Phone: [facility] 12-02-2024 09:22-0500 Heart rate 98 /min Liz Murcia ROUTE SALES DRIVER.BUTADIENE CONVERTOR OPERATOR Work Phone: [facility] 12-02-2024 09:22-0500 Respiratory rate 18 /min Liz Murcia ROUTE SALES DRIVER.BUTADIENE CONVERTOR OPERATOR Work Phone: [facility] 12-02-2024 09:22-0500 SaO2% (BldA) [Mass fraction] 99 % Liz Murcia APRN.BUTADIENE CONVERTOR OPERATOR Work Phone: [facility] 12-02-2024 09:22-0500 Systolic blood pressure 139 mm[Hg] Liz Murcia APRN.BUTADIENE CONVERTOR OPERATOR Work Phone: [facility] 01-24-2023 11:52-0400 Body height 175.26 cm [facility] 01-24-2023 11:52-0400 Body mass index (BMI) [Ratio] 42 kg/m2 [facility] 01-24-2023 11:52-0400 Body temperature 97.3 [degF] [facility] 01-24-2023 11:52-0400 Body weight 129.27 kg [facility] 01-24-2023 11:52-0400 Diastolic blood pressure 97 mm[Hg] [facility] 01-24-2023 11:52-0400 Heart rate 90 /min [facility] 01-24-2023 11:52-0400 Respiratory rate 14 /min [facility] 01-24-2023 11:52-0400 SaO2% (BldA) [Mass fraction] 99 % [facility] 01-24-2023 11:52-0400 Systolic blood pressure 149 mm[Hg] [facility] 01-12-2019 08:13-0400 BMI (Body Mass Index) 51.42 kg/m2 [facility] Internal Medicine Work Phone: 01-12-2019 08:13-0400 Body Temperature 98 [degF] [facility] Work Phone: Comment on above: Method: Temporal 01-12-2019 08:13-0400 Body weight 162.56 kg [facility] Work Phone: 01-12-2019 08:13-0400 BP Diastolic 84 mm[Hg] [facility] Work Phone: Comment on above: Patient Position: Sitting; Cuff Location : Left Arm; Cuff Size: Standard 01-12-2019 08:13-0400 BP Systolic 130 mm[Hg] Milena Ferrer [facility] Internal Medicine Work Phone: Comment on above: Patient Position: Sitting; Cuff Location : Left Arm; Cuff Size: Standard 01-12-2019 08:13-0400 BSA (Body Surface Area) 2.67 m2 Milena Ferrer [facility] Work Phone: 01-12-2019 08:13-0400 Height 177.8 cm Milena Ferrer [facility] Work Phone: 01-12-2019 08:13-0400 Pulse (Heart Rate) 101 /min Milena Ferrer [facility] Work Phone: Comment on above: Pattern: Regular 01-12-2019 08:13-0400 Pulse Oximetry 97 % Milena Ferrer [facility] Work Phone: Comment on above: Room air 01-12-2019 08:13-0400 Respiratory Rate 18 /min Milena Ferrer [facility] Work Phone: Comment on above: Pattern: Unlabored 11-11-2018 10:25-0500 BMI (Body Mass Index) 51.42 kg/m2 Milena Ferrer [facility] Internal Medicine Work Phone: Comment on above: Orthos Lay: 126/80 Q662Pun: 112/78 P100S tand: 100/74P 108 11-11-2018 10:25-0500 Body Temperature 98.4 [degF] Milena Ferrer [facility] Internal Medicine Work Phone: Comment on above: Method: Temporal Orthos Lay: 126/80 P 100Sit: 112/78 M904Ebsmf: 100/74P 108 11-11-2018 10:25-0500 Body weight 162.56 kg Milena Ferrer [facility] Medicine Work Phone: Comment on above: Orthos Lay: 126/80 N461Isn: 112/78 P100S tand: 100/74P 108 11-11-2018 10:25-0500 BP Diastolic 84 mm[Hg] Milena Ferrer [facility] Work Phone: Comment on above: Patient Position: Sitting; Cuff Location : Left Arm; Cuff Size: Standard Orthos Lay: 126/80 P 100Sit: 112/78 O370Uqvwc: 100/74P 108 11-11-2018 10:25-0500 BP Systolic 138 mm[Hg] [facility] Work Phone: Comment on above: Patient Position: Sitting; Cuff Location : Left Arm; Cuff Size: Standard Orthos Lay: 126/80 P 100Sit: 112/78 P897Kzbct: 100/74P 108 11-11-2018 10:25-0500 BSA (Body Surface Area) 2.67 m2 [facility] Internal Medicine Work Phone: Comment on above: Orthos Lay: 126/80 Y366Ryo: 112/78 P100S tand: 100/74P 108 11-11-2018 10:25-0500 Height 177.8 cm [facility] Medicine Work Phone: Comment on above: Orthos Lay: 126/80 G965Emc: 112/78 P100S tand: 100/74P 108 11-11-2018 10:25-0500 Pulse (Heart Rate) 97 /min [facility] Work Phone: Comment on above: Pattern: Regular Orthos Lay: 126/80 P 100Sit: 112/78 E823Npdxm: 100/74P 108 11-11-2018 10:25-0500 Pulse Oximetry 97 % [facility] Medicine Work Phone: Comment on above: Room air Orthos Lay: 126/80 P 100Sit: 112/78 E935Rqffc: 100/74P 108 11-11-2018 10:25-0500 Respiratory Rate 18 /min [facility] Internal Medicine Work Phone: Comment on above: Pattern: Unlabored Orthos Lay: 126/80 P 100Sit: 112/78 S097Wnypd: 100/74P 108 11-11-2018 10:25-0500 Weight 162.56 kg [facility] Medicine Work Phone: Comment on above: Orthos Lay: 126/80 A138Hpk: 112/78 P100S tand: 100/74P 108 07-23-2017 10:03-0400 BMI (Body Mass Index) 51.42 kg/m2 Milena Cox [facility] Work Phone: 07-23-2017 10:03-0400 Body Temperature 97.4 [degF] Milena Ferrer [facility] Work Phone: 07-23-2017 10:03-0400 Body weight 162.56 kg Milena Ferrer [facility] Work Phone: 07-23-2017 10:03-0400 BP Diastolic 80 mm[Hg] Milena Ferrer [facility] Work Phone: Comment on above: Patient Position: Sitting; Cuff Location : Left Arm; Cuff Size: Standard 07-23-2017 10:03-0400 BP Systolic 118 mm[Hg] Milena Ferrer [facility] Work Phone: Comment on above: Patient Position: Sitting; Cuff Location : Left Arm; Cuff Size: Standard 07-23-2017 10:03-0400 BSA (Body Surface Area) 2.67 m2 [facility] Work Phone: 07-23-2017 10:030400 Height 177.8 cm Milena [facility] Work Phone: 07-23-2017 10:03-0400 Pulse (Heart Rate) 86 /min Milena Ferrer [facility] Work Phone: Comment on above: Pattern: Regular 07-23-2017 10:030400 Pulse Oximetry 97 % Milena Ferrer [facility] Work Phone: Comment on above: Room air 07-23-2017 10:03-0400 Respiratory Rate 18 /min Milena Ferrer [facility] Work Phone: Comment on above: Pattern: Unlabored 07-23-2017 10:03-0400 Weight 162.56 kg Milena Ferrer [facility] Work Phone: 06-11-2017 07:29-0400 Height 180.34 cm Sharri Ibarra PA-C [facility] Work Phone: 06-11-2017 07:29-0400 Respiratory Rate 16 /min Sharri Ibarra PA-C [facility] Work Phone: 05-29-2017 08:23-0400 BMI (Body Mass Index) 47.53 kg/m2 Alex Garcia MD [facility] Work Phone: 05-29-2017 08:23-0400 Body Temperature 98.1 [degF] Alex Garcia MD [facility] Work Phone: 05-29-2017 08:23-0400 BP Diastolic 75 mm[Hg] Alex Garcia MD [facility] Work Phone: 05-29-2017 08:23-0400 BP Systolic 125 mm[Hg] Alex Garcia MD [facility] Work Phone: 05-29-2017 08:23-0400 Height 180.34 cm Alex Garcia MD [facility] Surgical [facility] Work Phone: 05-29-2017 08:23-0400 Pulse (Heart Rate) 90 /min Alex Garcia MD [facility] Work Phone: 05-29-2017 08:23-0400 Respiratory Rate 20 /min Alex Garcia MD [facility] Work Phone: 05-29-2017 08:23-0400 Weight 154.59 kg Alex Garcia MD [facility] Work Phone: 05-29-2017 08:23-0400 Weight 154.58 kg Alex Garcia MD [facility] Work Phone: 05-25-2017 15:31-0400 BMI (Body Mass Index) 49.36 kg/m2 [facility] Work Phone: 05-25-2017 15:31-0400 Body weight 156.04 kg [facility] Work Phone: 05-25-2017 15:31-0400 BP Diastolic 78 mm[Hg] [facility] Work Phone: Comment on above: Patient Position: Sitting; Cuff Location : Left Arm; Cuff Size: Standard 05-25-2017 15:31-0400 BP Systolic 115 mm[Hg] Milena Ferrer [facility] Work Phone: Comment on above: Patient Position: Sitting; Cuff Location : Left Arm; Cuff Size: Standard 05-25-2017 15:31-0400 BSA (Body Surface Area) 2.63 m2 Milena Ferrer [facility] Work Phone: 05-25-2017 15:31-0400 Height 177.8 cm Milena Ferrer [facility] Work Phone: 05-25-2017 15:31-0400 Pulse (Heart Rate) 96 /min Milena Ferrer [facility] Work Phone: Comment on above: Pattern: Regular 05-25-2017 15:31-0400 Pulse Oximetry 98 % Milena Ferrer [facility] Work Phone: Comment on above: Room air 05-25-2017 15:31-0400 Respiratory Rate 16 /min Milena Ferrer [facility] Work Phone: Comment on above: Pattern: Unlabored 05-25-2017 15:31-0400 Weight 156.04 kg Milena Ferrer [facility] Work Phone: 05-14-2017 08:55-0400 BP Diastolic 80 mm[Hg] Milena Ferrer [facility] Work Phone: Comment on above: Patient Position: Standing; Cuff Locatio n: Left Arm; Cuff Size: Standard 05-14-2017 08:55-0400 BP Systolic 120 mm[Hg] Milena Ferrer [facility] Work Phone: Comment on above: Patient Position: Standing; Cuff Locatio n: Left Arm; Cuff Size: Standard 05-14-2017 08:55-0400 Pulse (Heart Rate) 88 /min Milena Ferrer [facility] Work Phone: Comment on above: Pattern: Regular 05-14-2017 08:55-0400 BP Diastolic 80 mm[Hg] Milena Ferrer [facility] Work Phone: Comment on above: Patient Position: Sitting; Cuff Location : Left Arm; Cuff Size: Standard 05-14-2017 08:55-0400 BP Systolic 116 mm[Hg] [facility] Work Phone: Comment on above: Patient Position: Sitting; Cuff Location : Left Arm; Cuff Size: Standard 05-14-2017 08:55-0400 Pulse (Heart Rate) 85 /min [facility] Work Phone: Comment on above: Pattern: Regular 05-14-2017 08:55-0400 BP Diastolic 88 mm[Hg] Milena [facility] Internal Medicine Work Phone: Comment on above: Patient Position: Supine; Cuff Location: Left Arm; Cuff Size: Standard 05-14-2017 08:55-0400 BP Systolic 122 mm[Hg] [facility] Work Phone: Comment on above: Patient Position: Supine; Cuff Location: Left Arm; Cuff Size: Standard 05-14-2017 08:55-0400 Pulse (Heart Rate) 99 /min [facility] Work Phone: Comment on above: Pattern: Regular 05-14-2017 07:59-0400 BMI (Body Mass Index) 49.36 kg/m2 [facility] Work Phone: 05-14-2017 07:59-0400 Body Temperature 97.8 [degF] [facility] Work Phone: Comment on above: Method: Temporal 05-14-2017 07:59-0400 Body weight 156.04 kg [facility] Work Phone: 05-14-2017 07:59-0400 BP Diastolic 80 mm[Hg] [facility] Work Phone: Comment on above: Patient Position: Sitting; Cuff Location : Left Arm; Cuff Size: Standard 05-14-2017 07:59-0400 BP Systolic 124 mm[Hg] [facility] Work Phone: Comment on above: Patient Position: Sitting; Cuff Location : Left Arm; Cuff Size: Standard 05-14-2017 07:59-0400 BSA (Body Surface Area) 2.63 m2 [facility] [facility] Work Phone: 05-14-2017 07:59-0400 Height 177.8 cm Milena Ferrer [facility] Work Phone: 05-14-2017 07:59-0400 Pulse (Heart Rate) 72 /min Milena Ferrer [facility] Work Phone: Comment on above: Pattern: Regular 05-14-2017 07:59-0400 Pulse Oximetry 98 % Milena Ferrer [facility] Work Phone: Comment on above: Room air 05-14-2017 07:59-0400 Respiratory Rate 16 /min Milena Ferrer [facility] Work Phone: Comment on above: Pattern: Unlabored 05-14-2017 07:59-0400 Weight 156.04 kg Milena Ferrer [facility] Work Phone: 11-02-2015 09:44-0500 BMI (Body Mass Index) 48.65 kg/m2 Milena Ferrer [facility] Work Phone: 11-02-2015 09:44-0500 Body Temperature 96.8 [degF] Milena Ferrer [facility] Work Phone: Comment on above: Method: Tympanic 11-02-2015 09:44-0500 Body weight 153.79 kg Milena Ferrer [facility] Work Phone: 11-02-2015 09:44-0500 BP Diastolic 66 mm[Hg] Milena Ferrer [facility] Work Phone: Comment on above: Patient Position: Sitting; Cuff Location : Left Arm; Cuff Size: Standard 11-02-2015 09:44-0500 BP Systolic 124 mm[Hg] Milena Ferrer [facility] Work Phone: Comment on above: Patient Position: Sitting; Cuff Location : Left Arm; Cuff Size: Standard 11-02-2015 09:44-0500 BSA (Body Surface Area) 2.61 m2 Milena Ferrer [facility] Work Phone: 11-02-2015 09:44-0500 Height 177.8 cm [facility] Work Phone: 11-02-2015 09:44-0500 Pulse (Heart Rate) 93 /min [facility] Work Phone: Comment on above: Pattern: Regular 11-02-2015 09:44-0500 Pulse Oximetry 96 % [facility] Work Phone: Comment on above: Room air 11-02-2015 09:44-0500 Respiratory Rate 18 /min [facility] Work Phone: Comment on above: Pattern: Unlabored 11-02-2015 09:44-0500 Weight 153.79 kg [facility] Work Phone: 06-22-2015 08:54-0400 BMI (Body Mass Index) 46.38 kg/m2 [facility] Work Phone: 06-22-2015 08:54-0400 Body Temperature 98.2 [degF] [facility] Work Phone: 06-22-2015 08:54-0400 Body weight 146.63 kg [facility] Work Phone: 06-22-2015 08:54-0400 BP Diastolic 82 mm[Hg] Milena Ferrer [facility] Work Phone: Comment on above: Patient Position: Sitting; Cuff Location : Left Arm; Cuff Size: Standard 06-22-2015 08:54-0400 BP Systolic 120 mm[Hg] [facility] Work Phone: Comment on above: Patient Position: Sitting; Cuff Location : Left Arm; Cuff Size: Standard 06-22-2015 08:54-0400 BSA (Body Surface Area) 2.56 m2 Milena Ferrer [facility] Work Phone: 06-22-2015 08:54-0400 Height 177.8 cm [facility] Work Phone: 06-22-2015 08:54-0400 Pulse (Heart Rate) 103 /min [facility] Work Phone: Comment on above: Pattern: Regular 06-22-2015 08:54-0400 Pulse Oximetry 98 % [facility] Work Phone: Comment on above: Room air 06-22-2015 08:54-0400 Respiratory Rate 18 /min [facility] Work Phone: Comment on above: Pattern: Unlabored 06-22-2015 08:54-0400 Weight 146.63 kg [facility] Work Phone: 06-08-2015 09:18-0400 BMI (Body Mass Index) 45.84 kg/m2 [facility] Work Phone: 06-08-2015 09:18-0400 Body Temperature 97.4 [degF] [facility] Work Phone: 06-08-2015 09:18-0400 Body weight 144.93 kg [facility] Work Phone: 06-08-2015 09:18-0400 BP Diastolic 78 mm[Hg] Milena Ferrer [facility] Work Phone: Comment on above: Patient Position: Sitting; Cuff Location : Left Arm; Cuff Size: Standard 06-08-2015 09:18-0400 BP Systolic 122 mm[Hg] [facility] Work Phone: Comment on above: Patient Position: Sitting; Cuff Location : Left Arm; Cuff Size: Standard 06-08-2015 09:18-0400 BSA (Body Surface Area) 2.55 m2 [facility] Work Phone: 06-08-2015 09:18-0400 Height 177.8 cm [facility] Work Phone: 06-08-2015 09:18-0400 Pulse (Heart Rate) 97 /min [facility] Work Phone: Comment on above: Pattern: Regular 06-08-2015 09:18-0400 Pulse Oximetry 98 % [facility]: Comment on above: Room air 06-08-2015 09:18-0400 Respiratory Rate 16 /min [facility] Work Phone: Comment on above: Pattern: Unlabored 06-08-2015 09:18-0400 Weight 144.93 kg [facility] Work Phone: Encounters Encounter Date Encounter Type Care Provider Facility Start: 05-26-2025 Patient encounter procedure Finesse PEOPLES -[facility] Start: 05-26-2025 End: 05-26-[address] Sarah Lopez MD Work Phone: -[facility] Start: 05-26-2025 End: 05-26-2025 Patient encounter procedure Finesse PEOPLES [facility] Work Phone: Start: 02-03-2025 End: 02-03-2025 ambulatory Facility:[facility] Start: 02-03-2025 End: 02-03-2025 Patient encounter procedure Kiara Pedersonbharath [employer]OUTE SALES DRIVER.BUTADIENE CONVERTOR OPERATOR Work Phone: [facility] Comment on above: Diarrhea, unspecifie d type (Primary Dx); Nausea Start: 12-23-2024 End: 12-23-2024 ambulatory [facility] Facility:[facility] [place] Start: 12-02-2024 End: 12-02-2024 ambulatory Facility:[facility] Start: 12-02-2024 End: 12-02-2024 Patient encounter procedure Liz Murcia APRN.BUTADIENE CONVERTOR OPERATOR Work Phone: [facility] Comment on above: URI, acute (Primary Dx) Start: 09-06-2024 ambulatory [facility] Facility :[facility] [place] Start: 05-02-2024 End: 05-02-2024 ambulatory [facility] Facility:[facility] [place] [facility] Start: 01-28-2024 End: 01-28-2024 ambulatory [facility] Facility:[facility] [place] Start: 01-22-2024 End: 01-22-2024 ambulatory [facility] Work Phone: Start: 01-22-2024 End: 01-22-2024 Patient encounter procedure [facility], [facility] Start: 01-22-2024 End: 01-22-2024 ambulatory Sarah [place] Facility:[facility] Start: 01-24-2023 End: 01-24-2023 Emergency department patient visit [facility]gency Department Start: 01-12-2019 End: 01-12-2019 Office outpatient visit 15 minutes [facility] Start: 11-11-2018 Patient encounter procedure [facility] Start: 11-11-2018 End: 11-11-2018 Office outpatient visit 25 minutes [facility] Start: 11-11-2018 Review [facility] gonzalez [facility] Start: 07-23-2017 End: 07-23-2017 Office outpatient visit 15 minutes [facility] Start: 05-25-2017 End: 05-25-2017 Office outpatient visit 15 minutes [facility] Start: 05-14-2017 End: 05-14-2017 Office outpatient visit 15 minutes [facility] Start: 11-02-2015 End: 11-02-2015 Office outpatient visit 15 minutes [facility] Start: 07-04-2015 End: 07-04-2015 Annotation/Addendum Milena Ferrer [facility] Start: 06-25-2015 End: 06-28-2015 Annotation/Addendum [facility]ena [facility] Start: 06-22-2015 End: 06-22-2015 Office outpatient visit 15 minutes [facility] Start: 06-08-2015 End: 06-08-2015 Office outpatient new 30 minutes [facility] Procedures Date Procedure Procedure Detail Performing Clinician Start: 01-12-2019 End: 01-12-2019 Urgent Care Visit Report Comments: See Note; NOTES: [facility] [address] [place] [address] OFFICE VISIT Date of Service: 01/12/19 MR#: [id number] Acct: [id number] Name: FARHAD MAYES Rep #: [id number] : 1985 Provider: Jose Manuel Wyles PA Age/Sex: 33/M Location: [facility] [place] Status: Signed Intake Vital Signs01/12/19 Height 5 ft 11 in Intake Visit Reasons: CHEST CONGESTION, COUGH, SORE THROAT Chief Complaint: flu General Helper Required: No Accompanied by: self Is patient in pain?: No Allergies No Known Allergies Allergy (Verified 01/12/19 07:45) [facility] Surgical History History of cholecystectomy (Acute) Social History Smoking Status: Former smoker HPI HPI Chief Complaint: flu Details: FARHAD MAYES, is a 33 M who presents to the office today for initial evaluation 1 week history of dry cough, clear rhinorrhea, headaches, myalgias, stating he feels slightly better over the last 24 hours but has missed work and is requesting a work excuse. He notes occasional chills though no complaints of fever, sweats, rash, chest pressure/shortness of breath/wheeze, difficulty swallowing/drooling. He is a non-smoker noting no other members in household with similar complaints. He notes no other associated symptoms and no other alleviating or aggravating factors. ROS Const Constitutional: No other (ROS negative x10 other than as noted above) Exam Const General: cooperative (Warm to touch), healthy appearing, no acute distress Nutritional Appearance: obese Orientation: alert, awake, oriented x3 HENMT Head: normal to inspection Ears: hearing grossly normal bilaterally, external ears normal, TM's normal bilaterally, EAC's normal Nose: external nose normal, nares normal, septum normal, nasal discharge clear bilaterally (Rapid flu test positive for influenza A) Face and sinus: normal facial exam, sinuses nontender, face symmetric Mouth: oral mucosae normal, lip normal, tongue normal Teeth and gingiva: dentition normal, gingiva normal Throat: posterior oropharynx normal, tonsils normal, uvula midline, no postnasal drainage Eyes General: appearance normal, both eyes and all related structures Neck Neck: normal visual inspection, full ROM, no lymphadenopathy, no meningeal signs, supple Neck mass: No Thyroid: thyroid normal Lymphatic: no lymphadenopathy noted Chest Chest palpation AND inspection: normal inspection of the chest Resp Effort AND Inspection: normal respiratory effort, able to speak in complete sentences, symmetric chest movement, cough Quality of cough: dry Auscultation: Bilateral: Clear to Auscultation Cardio Palpation: normal PMI Rate: regular rate Rhythm: regular rhythm Heart Sounds: S1 normal, S2 normal, no gallops, no murmurs, no rubs Pulses: radial pulses present GI Inspection: normal to inspection Palpation: soft, no hepatosplenomegaly Skin General: no rashes or lesions noted Neuro General: alert, awake, oriented x3, gait normal Cognition: normal cognition Speech: speech normal Gait: normal gait Motor: muscle tone normal throughout Sensory Exam: no sensory deficits noted Psych Appearance: grossly normal Mental Status: mental status grossly normal Mood: congruent mood Affect: normal affect Speech and Movement: speech and movement normal Attitude: cooperative Thought Process: normal Thought Content: normal Judgment: judgment good Assessment AND Plan Problems 1. Influenza A J10.1 Plan Due to symptoms greater than 48 hours, no Tamiflu offered; patient understands rationale for this decision. Clear fluids, rest, Advil/Tylenol as needed for symptomatic relief. Work excuse for today and tomorrow. Follow-up with PCP in 5-7 days should symptoms not continue to improve, sooner should symptoms worsen or any other concerns develop. Patient states acknowledging understanding all the above. This note was generated with [employer] software. It may contain incorrect words, spelling, and punctuation that were not noted in checking the note before signing. Orders Orders: Coding Level of Care Code Off vis,new,level 3 Diagnoses Influenza A J10.1 01/12/19 0753 <Electronically signed by Jose Manuel PEOPLES> Date Jose Manuel PEOPLES Cosigner Signature: Date (if applicable) CC: Milena Ferrer Start: 06-05-2017 End: 06-05-2017 12 lead ECG Comments: See Note; NOTES: [facility] [address] [place], [place] [address] [address] 12 Lead EKG 06/04/17 1235 MR#: [id number] Acct: [id number] Name: FARHAD MAYES Rep #: [id number] : 1985 31 From: Aj Mina MD Attending Dr: Alex Garcia MD Status: DEP [facility] Ordering Dr: Allen Puentes MD Date: 06/04/17 Location: [facility] Sex: M C Admitted: Test Reason : PRE-OP Blood Pressure : / mmHG Vent. Rate : 069 BPM Atrial Rate : 069 BPM P-R Int : 168 ms QRS Dur : 096 ms QT Int : 400 ms P-R-T Axes : -07 013 017 degrees QTc Int : 428 ms Normal sinus rhythm Normal ECG No previous ECGs available Confirmed by KARIS JONES, AJ ([id number]), content editor LOIS KELLY ([id number]) on 06/05/2017 1:56:23 PM Referred By: RADHA Confirmed By:AJ MINA MD 06/05/17 1356 Date Aj Mina MD CC: Milena Ferrer Date Dictated: 06/04/17 1235 Date Transcribed: 06/04/17 1235 Auto Painter Helper: Signed Milena Ferrer Start: 06-04-2017 End: 06-04-2017 Discharge Instruction Comments: See Note; NOTES: [facility] Medical Records Department [address] [place] [address] Instructions for Home/Discharge Instructions 06/04/17 1325 MR#: [id number] Acct: [id number] Name: FARHAD MAYES Rep #: [id number] : 1985 31 From: Alex Garcia MD PCP: Milena Ferrer Status: REG [facility] Discharge Diet: Light diet - advance as tolerated Discharge Activity: May Not Drive - for 2-3 days or while taking narcotic pain medications., - - Do not drive, work heavy equipment or sign legal documents for 24 hours. May shower in (days): 1 - with the bandage in place. Additional Activity Instructions:: Pain medication may cause nausea. You should typically eat light foods as you take your pain medications. Pain medication may also cause constipation. If this is a problem for you, please discuss with your doctor. Call your doctor if your incision/area has: Continuous Slow Oozing, Sudden Increased Bleeding, Increased Pain/ Swelling, Increased Redness, Foul Smelling Discharge Call your doctor if you observe: Fever of 101 or Higher Suture Line Care: Avoid Pulling/Pushing, Avoid Pinching/Bending Additional Dressing/Incision Instructions:: Leave operative bandaids on for 2 days. When you remove dressing, leave Steri-Strips on until your follow-up appointment, or until the Steri-Strips fall off on their own. Allergies/Adverse Reactions: Allergies No Known Allergies Allergy (Verified 06/05/15 20:30) Medications to take at Discharge Oxycodone HCl/Acetaminophen [Percocet 5/325] 1 - 2 tablet PO Q4H PRN PRN #30 tablet 06/04/17 The following prescriptions were given: Oxycodone HCl/Acetaminophen [Percocet 5/325] 1 - 2 tablet PO Q4H PRN PRN #30 tablet PRN Reason: Pain Primary Care Physician: Milena Ferrer [Primary Care Provider] - Please Follow Up With: Alex Garcia - Please call [phone] to schedule an appointment. When: 7 days after your surgery. 06/04/17 1326 <Electronically signed by Alex Garcia MD> Date Alex Garcia MD CC: Milena Ferrer Start: 05-20-2017 End: 05-20-2017 Gallbladder Comments: See Note; NOTES: [facility] [address] [place] [address] Verdana 4d Gallbladder MR#: [id number] Acct: [id number] Name: FARHAD MAYES Rep #: [id number] : 1985 M 31 From: Michelet Palencia MD PCP: Milena Ferrer Status: REG CLI Study: Gallbladder Date of Exam: 05/20/17 Exam# [id number] Ordering Dr: Milena Ferrer STUDY: ABDOMINAL ULTRASOUND - RIGHT UPPER QUADRANT REASON FOR VISIT: Male, 31 years old. Abdominal pain. TECHNIQUE: Ultrasound evaluation of the right upper quadrant was performed with real-time and static celis-scale imaging. TECHNICAL QUALITY: Adequate. COMPARISON: Comparison is made with prior similar examination dated July 04, 2015. FINDINGS: Liver: The liver is enlarged and measures 21.2 cm. There is increased echogenicity consistent with fatty infiltration. The bile ducts are within normal limits. There is hepatic color flow. The direction of portal flow is hepatopetal. There is no demonstrated mass lesion. Gallbladder: Normal distended gallbladder. The gallbladder wall measures 2.3 mm. There is a negative sonographic Cortez's sign. There is no pericholecystic fluid. There are no gallstones. A small amount of sludge is seen within the gallbladder lumen. Common Bile Duct (C.B.D.): The common bile duct measures 2.1 mm. Pancreas: There is nonvisualization of the pancreas due to overlying bowel gas. Right Kidney: Normal size of the right kidney. The right kidney measures 12.9 cm x 5.8 cm x 8.2 cm. Normal renal cortex. The right cortex measures 2.5 cm. There is no demonstrated renal mass or cyst. There is no right hydronephrosis. US/Gallbladder IMPRESSION: Hepatomegaly. Fatty infiltration of the liver. A small amount of sludge is seen within the gallbladder lumen. Electronically Signed: Michelet Palencia MD at 10:01 EDT Tel [phone], Service support , CC: Milena Ferrer Auto Painter Helper: Signed Milena Ferrer Work Phone: Start: 07-04-2015 End: 07-04-2015 Liver Comments: See Note; NOTES: [facility] [address] [place] [address] Ultrasound Report MR#: [id number] Acct: [id number] Name: FARHAD MAYES Rep #: [id number] : 1985 M 29 From: Yuan Staley MD PCP: Milena Ferrer Status: REG CLI Study: Liver Date of Exam: 07/04/15 Exam# [id number] Ordering Dr: Milena Ferrer STUDY: ABDOMINAL ULTRASOUND - RIGHT UPPER QUADRANT REASON FOR VISIT: Male, 29 years old. Hepatomegaly TECHNIQUE: Ultrasound evaluation of the right upper quadrant was performed with real-time and static celis-scale imaging. TECHNICAL QUALITY: Adequate. COMPARISON: CT scan from June 05, 2015 FINDINGS: Liver: The liver measures 20 cm. There is increased echogenicity consistent with fatty infiltration. The bile ducts are within normal limits. There is hepatic color flow. The direction of portal flow is hepatopetal. There is no demonstrated mass lesion. Gallbladder: Normal distended gallbladder. The gallbladder wall measures 2.8 mm. There is a negative sonographic Cortez's sign. There is no pericholecystic fluid. There are no gallstones. Common Bile Duct (C.B.D.): The common bile duct measures 4.2 mm. Pancreas: Normal size of the head, body and tail of the pancreas. There is normal echogenicity of the pancreas. There is no demonstrated pancreatic mass or cyst. Right Kidney: Normal size of the right kidney. The right kidney measures 12.2x6.7x5.1 cm. Normal renal cortex. The right cortex measures 1.8 cm. There is no demonstrated renal mass or cyst. There is no right hydronephrosis. IMPRESSION: Fatty infiltration of the liver. Electronically Signed: Violette Staley MD at 14:25 EDT Tel , Service support [phone], CC: Milena Ferrer Auto Painter Helper: Signed Milena Ferrer Work Phone: double hernia at 4 months old Tate Prakash double hernia at 4 months old Tate Prakash Gallbladder Surgery [facility] Comment on above: Dr Garcia June 04 2017 Gallbladder Surgery [facility] Comment on above: Dr Garcia June 04 2017 Plan of Treatment Date Care Activity Detail Author Start: 05-26-2025 CBC W Auto Differential panel - Blood [facility] Start: 05-26-2025 Comprehensive metabolic 2000 panel - Serum or Plasma [facility] Start: 06-26-2024 Covid-19 Vaccine () Covid-19 Vaccine ( season) [facility] Start: 06-26-2024 Influenza vaccination Influenza Vaccine (#1) [facility] Start: 2020 Lipid panel Lipid Screening [facility] Start: 06-11-2017 End: 06-11-2017 Appointment Appointment [facility] Work Phone: Start: 05-29-2017 End: 05-29-2017 [facility]oint[facility] Work Phone: Start: 05-25-2017 Alpha-fetoprotein serum [id number] UM ([id number]) [facility] Work Phone: Start: 05-25-2017 Acute hepatitis panel HEPATITIS PANEL (21295) [facility] Work Phone: Start: 2004 Hepatitis B Vaccine (1 of 3 - 19+ 3-dose series) Hepatitis B Vaccine (1 of 3 - 19+ 3-dose series) [facility] Start: 2004 Urine microalbumin profile DTaP,Tdap,Td Vaccine (1 - Tdap) [facility] Start: 2003 Anxiety Screening Anxiety Screening [facility] Start: 2003 Depression Screening Depression Screening [facility] Start: 2003 Hepatitis C screening Hepatitis C Screening [facility] Start: 2003 HIV screening HIV Screening [facility] Alanine aminotransfe rase [Enzymatic activity/volume] in Serum or Plasma [facility] Albumin [Mass/volume ] in Serum or Plasma [facility] Alkaline phosphatase [Enzymatic activity/volume] in Serum or Plasma [facility] Anion gap in Serum o r Plasma [facility] Bilirubin, total measurement [facility] BUN/Creatinine ratio [facility] Calcium [Mass/volume ] in Serum or Plasma [facility] Carbon dioxide, tota l [Moles/volume] in Central venous blood [facility] Cholesterol [Mass/vo lume] in Serum or Plasma [facility] Cholesterol in HDL [Mass/volume] in Serum or Plasma [facility] Creatinine [Mass/vol ume] in Serum or Plasma [facility] Erythrocyte mean corpuscular volume determination [facility] Glucose [Mass/volume ] in Serum or Plasma [facility] Hematocrit [Volume Fraction] of Blood [facility] Hemoglobin [Mass/vol ume] in Blood [facility] Leukocytes [#/volume ] in Blood [facility] Low density lipoprot ein cholesterol measurement [facility] Mean corpuscular hemoglobin concentration determination [facility] Mean corpuscular hemoglobin determination [facility] Measurement of renal function [facility] Neutrophil count [facility] Neutrophil percent differential count [facility] Patient referral [facility] Work Phone: Platelets [#/volume] in Blood [facility] Potassium measurement [facility] Red blood cell count [facility] Red cell distributio n width determination [facility] Serum chloride measurement [facility] Sodium measurement [facility] Total cholesterol:HD L ratio measurement [facility] Total protein measurement [facility] Triglycerides measurement [facility] Urea nitrogen [Mass/volume] in Serum or Plasma [facility] VLDL cholesterol measurement [facility] Work Phone: [facility] Work Phone: [facility] Work Phone[facility] Work Phone: [facility] Work Phone: [facility] Work Phone: [facility] Work Phone: [facility] Work Phone: [facility] Work Phone: [facility] Work Phone: [facility] Payers Date Payer Category Payer Self-pay [id number] 2023 Private Health Insurance [employer] PPO Member Subscriber Plan / Payer (Effective 2023-Present) Name: Farhad Mayes Relation to Subscriber: Self Name: Farhad Mayes Payer ID: Not on file Type: PPO Address: [place] [id number] 2023 Unknown 2018 Unknown [id number] 1985 Unknown [id number] Unknown [id number] Unknown [id number] Unknown [id number] Unknown [id number] Unknown [id number] Unknown [id number] Social History Date Type Detail Facility Tobacco use: Former smoker [facility] Work Phone: Comment on above: quit 5 yrs ago Start: 01-24-2023 End: 01-21-2024 Tobacco smoking status [facility] Unknown if ever smoked [facility] Start: 1985 Sex Assigned At Male W [facility] Start: 11-06-2023 End: 03-28-2024 Tobacco smoking status NHIS Ex-smoker [facility] History of tobacco use Current smoker [facility] Start: 11-06-2023 Tobacco use and exposure Smokeless tobacco non-user [facility] Start: 12-02-2024 End: 02-03-2025 Alcoholic beverage intake Lifetime non-drinker (finding) [facility] Start: 10-05-2020 End: 12-02-2024 History of Social function [facility] Start: 10-05-2020 End: 12-02-2024 Tobacco use panel [facility] National Score (1-100), lower number is lower risk Not on file [facility] Start: 1985 Sex assigned at Not on file C [facility] Progress note 02-03-2025 Note Date & Type Note Facility 02-03-2025 Note HNO ID: [id number] Author: KIARA ELLSWORTH APRN.[employer] CONVERTOR OPERATOR Service: ? Author Type: Nurse Practitioner Type: Progress Notes Filed: 02/03/2025 09:13 Note Text: This note was created using [employer] ITriter. Subjective Farhad Mayes is a 39 year old male. HPI Patient woke this morning complaining of diarrhea, chills, and cramps. He states he did not feel well through the night and did not get much sleep. He otherwise denies any fever urinary burning or frequency Review of Systems As above Objective BP 132/87 Pulse 95 Temp 36.7 ?C (98 ?F) Resp 18 Wt 129.7 kg (285 lb 15 oz) SpO2 99% Physical Exam Vitals and nursing note reviewed. Constitutional: General: He is not in acute distress. Appearance: Normal appearance. He is not ill-appearing. HENT: Head: Normocephalic. Mouth/Throat: Mouth: Mucous membranes are moist. Eyes: Conjunctiva/sclera: Conjunctivae normal. Cardiovascular: Rate and Rhythm: Normal rate and regular rhythm. Pulmonary: Effort: Pulmonary effort is normal. Breath sounds: Normal breath sounds. Abdominal: Palpations: Abdomen is soft. Tenderness: There is no abdominal tenderness. Musculoskeletal: General: Normal range of motion. Cervical back: Normal range of motion. Skin: General: Skin is warm and dry. Neurological: General: No focal deficit present. Mental Status: He is alert. Psychiatric: Mood and Affect: Mood normal. Behavior: Behavior normal. Assessment and Plan ASSESSMENT/PLAN: 1. Diarrhea, unspecified type - ICD9: 787.91, ICD10: R19.7 (primary diagnosis) Discussed with patient the use of high-calorie fluids such as Gatorade or Ensure. Recommended to monitor that he urinates at least 3-4 times per day. Instructed to go to the emergency department if he feels as though he is getting dehydrated. 2. Nausea - ICD9: 787.02, ICD10: R11.0 Patient given a prescription for Zofran to use as needed for nausea. He was instructed to slowly resume diet as tolerated. Patient given a work note. - ONDANSETRON 4 MG DISINTEGRATING TABLET Kiara Ellsworth APRN.ARUNA [facility] History of Present illness Narrative 02-03-2025 Kiara Ellsworth APRN.ARUNA - 02/03/2025 9:05 AM EDT Note Date & Type Note Facility 02-03-2025 History of Presen t illness Narrative This note was created using Solexant. Subjective Farhad Mayes is a 39 year old male. HPI Patient woke this morning complaining of diarrhea, chills, and cramps. He states he did not feel well through the night and did not get much sleep. He otherwise denies any fever urinary burning or frequency Review of Systems As above Objective BP 132/87 Pulse 95 Temp 36.7 C (98 F) Resp 18 Wt 129.7 kg (285 lb 15 oz) SpO2 99% Physical Exam Vitals and nursing note reviewed. Constitutional: General: He is not in acute distress. Appearance: Normal appearance. He is not ill-appearing. HENT: Head: Normocephalic. Mouth/Throat: Mouth: Mucous membranes are moist. Eyes: Conjunctiva/sclera: Conjunctivae normal. Cardiovascular: Rate and Rhythm: Normal rate and regular rhythm. Pulmonary: Effort: Pulmonary effort is normal. Breath sounds: Normal breath sounds. Abdominal: Palpations: Abdomen is soft. Tenderness: There is no abdominal tenderness. Musculoskeletal: General: Normal range of motion. Cervical back: Normal range of motion. Skin: General: Skin is warm and dry. Neurological: General: No focal deficit present. Mental Status: He is alert. Psychiatric: Mood and Affect: Mood normal. Behavior: Behavior normal. Assessment and Plan ASSESSMENT/PLAN: 1. Diarrhea, unspecified type - ICD9: 787.91, ICD10: R19.7 (primary diagnosis) Discussed with patient the use of high-calorie fluids such as Gatorade or Ensure. Recommended to monitor that he urinates at least 3-4 times per day. Instructed to go to the emergency department if he feels as though he is getting dehydrated. 2. Nausea - ICD9: 787.02, ICD10: R11.0 Patient given a prescription for Zofran to use as needed for nausea. He was instructed to slowly resume diet as tolerated. Patient given a work note. - ONDANSETRON 4 MG DISINTEGRATING TABLET Kiara Ellsworth APRN.ARUNA documented in this encounter [facility] Progress note 12-02-2024 Note Date & Type Note Facility 12-02-2024 Note HNO ID: [id number] Author: LIZ MURCIA APRN.CNP Service: ? Author Type: Nurse Practitioner Type: Progress Notes Filed: 12/02/2024 09:29 Note Text: CC: Patient presents with: Nausea: Diarrhea, chills, fatigue x this AM HPI: Farhad Mayes is a 39 year old male who presents to the office with complaint of head congestion and cough, nonproductive since this morning. Symptoms are staying the same. Associated symptoms includes fatigue, nausea, diarrhea, and chills. Denies sore throat, ear pain, wheezing, and dyspnea. Treatments tried include nothing so far. with no relief of symptoms. Sick contacts: unknown. History of asthma, frequent episodes of bronchitis, chronic bronchitis, bronchiectasis or COPD: No Smoker: yes Seasonal/environmental allergies: No The ROS is otherwise negative. The patient's pmh, medications, allergies, and past visits are reviewed. PHYSICAL EXAM: BP 139/88 Pulse 98 Temp 36.6 ?C (97.9 ?F) Resp 18 Wt 128.4 kg (283 lb 1.1 oz) SpO2 99% General appearance: alert, cooperative, pleasant, in no acute distress Head: Normocephalic Eyes: EOM's intact, conjunctiva pink and moist, no icterus, sclera white, non-injected Ears: Right ear: External ear/canal- Normal, TM - clear with good landmarks. Left ear: External ear/canal- Normal, TM - clear with good landmarks Oropharynx:moist without lesions, No erythema, exudates or tonsillar hypertrophy. Heart: Negative. RRR without obvious murmur, gallop, or rubs. No ectopy. Lungs: clear to auscultation, without rales or wheeze, good air exchange No past medical history on file. No past surgical history on file. ALLERGIES Patient has no known allergies. MEDICATIONS metFORMIN ER (GLUCOPHAGE XR) 500 mg 24 hr tablet Take 1 tablet by mouth every 12 hours. loratadine (CLARITIN ORAL) Take by mouth. predniSONE (DELTASONE) 10 mg tablet Take 4 tabs daily for 3 days, then 2 tabs daily for 3 days, then 1 tab daily for 3 days with food. (Patient not taking: Reported on 11/06/2023) No family history on file. Social History Tobacco Use Smoking status: Former Smokeless tobacco: Never Vaping Use Vaping status: Never Used Substance Use Topics Alcohol use: Never Drug use: Never ASSESSMENT/PLAN: 1. URI, acute - ICD9: 465.9, ICD10: J06.9 viral at this time. Supportive care Potential red flag symptoms discussed with the patient. Reviewed appropriate action plan to take if red flag symptoms occur. Patient agreeable to treatment plan. Liz Murcia APRN.[facility] History of Present illness Narrative 12-02-2024 Liz Murcia APRN.[facility] - 12/02/2024 9:23 AM EST Note Date & Type Note Facility 12-02-2024 History of Presen t illness Narrative CC: Patient presents with: Nausea: Diarrhea, chills, fatigue x this AM HPI: Farhad Mayes is a 39 year old male who presents to the office with complaint of head congestion and cough, nonproductive since this morning. Symptoms are staying the same. Associated symptoms includes fatigue, nausea, diarrhea, and chills. Denies sore throat, ear pain, wheezing, and dyspnea. Treatments tried include nothing so far. with no relief of symptoms. Sick contacts: unknown. History of asthma, frequent episodes of bronchitis, chronic bronchitis, bronchiectasis or COPD: No Smoker: yes Seasonal/environmental allergies: No The ROS is otherwise negative. The patient's pmh, medications, allergies, and past visits are reviewed. PHYSICAL EXAM: BP 139/88 Pulse 98 Temp 36.6 C (97.9 F) Resp 18 Wt 128.4 kg (283 lb 1.1 oz) SpO2 99% General appearance: alert, cooperative, pleasant, in no acute distress Head: Normocephalic Eyes: EOM's intact, conjunctiva pink and moist, no icterus, sclera white, non-injected Ears: Right ear: External ear/canal- Normal, TM - clear with good landmarks. Left ear: External ear/canal- Normal, TM - clear with good landmarks Oropharynx:moist without lesions, No erythema, exudates or tonsillar hypertrophy. Heart: Negative. RRR without obvious murmur, gallop, or rubs. No ectopy. Lungs: clear to auscultation, without rales or wheeze, good air exchange No past medical history on file. No past surgical history on file. ALLERGIES Patient has no known allergies. MEDICATIONS metFORMIN ER (GLUCOPHAGE XR) 500 mg 24 hr tablet Take 1 tablet by mouth every 12 hours. loratadine (CLARITIN ORAL) Take by mouth. predniSONE (DELTASONE) 10 mg tablet Take 4 tabs daily for 3 days, then 2 tabs daily for 3 days, then 1 tab daily for 3 days with food. (Patient not taking: Reported on 11/06/2023) No family history on file. Social History Tobacco Use Smoking status: Former Smokeless tobacco: Never Vaping Use Vaping status: Never Used Substance Use Topics Alcohol use: Never Drug use: Never ASSESSMENT/PLAN: 1. URI, acute - ICD9: 465.9, ICD10: J06.9 viral at this time. Supportive care Potential red flag symptoms discussed with the patient. Reviewed appropriate action plan to take if red flag symptoms occur. Patient agreeable to treatment plan. Liz Murcia APRN.CNP documented in this encounter [facility] Evaluation note Note Date & Type Note Facility Evaluation note No assessment information [facility] Work Phone: Evaluation note Note Date & Type Note Facility Evaluation note Diagnosis URI, acute- Primary Acute upper respiratory infections of unspecified site documented in this encounter [facility] Evaluation note Note Date & Type Note Facility Evaluation note Diagnosis Diarrhea, unspecified type- Primary Nausea Nausea alone documented in this encounter [facility] Evaluation note Note Date & Type Note Facility Evaluation note Diagnosis Onset Date Resolution Type 2 diabetes mellitus chronic May 26, 2025 8:21am [employer] Work Phone: Hospital Discharge instructions Note Date & Type Note Facility Hospital Discharge instructions Additional Instructions Please follow-up with the PCP I referred you to. [facility] Work Phone: Reason for referral (narrative) Note Date & Type Note Facility Reason for referral (narrative) No reason for referral information available [employer] Work Phone: Instructions Name Dates Details BMI 50.0-59.9, adult : How t o access health information online Indication:BMI 50.0-59.9, adult BMI 50.0-59.9, adult : How t o access health information online - Detail Indication:BMI 50.0-59.9, adult BMI 50.0-59.9, adult : Patie nt Instructions Indication:BMI 50.0-59.9, adult Non-smoker : How to access h ealth information online Indication:Non-smoker Non-smoker : How to access h ealth information online - Detail Indication:Non-smoker Bloody stool : Patient Instr uctions Indication:Bloody stool Gallbladder sludge : How to access health information online Indication:Gallbladder sludge Gallbladder sludge : How to access health information online - Detail Indication:Gallbladder sludge Gallbladder sludge : Patient Instructions Indication:Gallbladder sludge BMI 45.0-49.9, adult : How t o access health information online Indication:BMI 45.0-49.9, adult BMI 45.0-49.9, adult : How t o access health information online - Detail Indication:BMI 45.0-49.9, adult BMI 45.0-49.9, adult : Patie nt Instructions Indication:BMI 45.0-49.9, adult Snoring : How to access heal th information online Indication:Snoring Snoring : How to access heal th information online - Detail Indication:Snoring Snoring : Patient Instructio ns Indication:Snoring Name Dates Details BMI 50.0-59.9, adult : How t o access health information online Indication:BMI 50.0-59.9, adult BMI 50.0-59.9, adult : How t o access health information online - Detail Indication:BMI 50.0-59.9, adult BMI 50.0-59.9, adult : Patie nt Instructions Indication:BMI 50.0-59.9, adult Non-smoker : How to access h ealth information online Indication:Non-smoker Non-smoker : How to access h ealth information online - Detail Indication:Non-smoker Bloody stool : Patient Instr uctions Indication:Bloody stool Gallbladder sludge : How to access health information online Indication:Gallbladder sludge Gallbladder sludge : How to access health information online - Detail Indication:Gallbladder sludge Gallbladder sludge : Patient Instructions Indication:Gallbladder sludge BMI 45.0-49.9, adult : How t o access health information online Indication:BMI 45.0-49.9, adult BMI 45.0-49.9, adult : How t o access health information online - Detail Indication:BMI 45.0-49.9, adult BMI 45.0-49.9, adult : Patie nt Instructions Indication:BMI 45.0-49.9, adult Snoring : How to access heal th information online Indication:Snoring Snoring : How to access heal th information online - Detail Indication:Snoring Snoring : Patient Instructio ns Indication:Snoring Name Dates Details Non-smoker : How to access h ealth information online Indication:Non-smoker Non-smoker : How to access h ealth information online - Detail Indication:Non-smoker Non-smoker : Patient Instruc tions Indication:Non-smoker BMI 50.0-59.9, adult : How t o access health information online Indication:BMI 50.0-59.9, adult BMI 50.0-59.9, adult : How t o access health information online - Detail Indication:BMI 50.0-59.9, adult BMI 50.0-59.9, adult : Patie nt Instructions Indication:BMI 50.0-59.9, adult Bloody stool : Patient Instr uctions Indication:Bloody stool Gallbladder sludge : How to access health information online Indication:Gallbladder sludge Gallbladder sludge : How to access health information online - Detail Indication:Gallbladder sludge Gallbladder sludge : Patient Instructions Indication:Gallbladder sludge BMI 45.0-49.9, adult : How t o access health information online Indication:BMI 45.0-49.9, adult BMI 45.0-49.9, adult : How t o access health information online - Detail Indication:BMI 45.0-49.9, adult BMI 45.0-49.9, adult : Patie nt Instructions Indication:BMI 45.0-49.9, adult Snoring : How to access heal th information online Indication:Snoring Snoring : How to access heal th information online - Detail Indication:Snoring Snoring : Patient Instructio ns Indication:Snoring Summary Purpose Family History Relationship Condition Age at Onset Recorded Date/T raghav father Malignant neoplasm Unknown Diabetes mellitus Unknown mother Diabetes mellitus Unknown Hypertension Unknown Kidney disorder Unknown Parkinson's disease Unknown grandfather Cardiac disease Unknown Advance Directives Advance Directive Response Recorded Date/ Time Living Will No January 24, 2023 12:25pm Power of Avionics System Engineer No January 24 12:25pm Chief Complaint and Reason for Visit Chief Complaint HYPERGLYCEMIA Chief Complaint Admit Date ACUTE HIGH BLOOD SUGARS May 26, 2025 8:21am ` May 26, 2025 9:2 2am Reason for Visit Admit Date Type 2 diabetes mellitus May 26 8:21am Additional Source Comments (unrecognized sect ion and content) No Status Records FoundNo Status Records FoundNo Status Records Found INFORMATION SOURCE (unrecogn ized section and content) DATE CREATED AUTHOR 11/18/2018 [facility] DATE CREATED AUTHOR AUTHOR'S ORGANIZ ATION 12/25/2024 [facility] DATE CREATED AUTHOR AUTHOR'S ORGANIZ ATION 02/04/2025 [facility] Care Teams (unrecognized sec tion and content) Team Status: Active Member Role Status Dates Milena Ferrer NP, TUNNEL KILN FIRER-C Family Provider Active No Primary Care Physician Primary Care Provider Active Team Status: Inactive Member Role Status Dates No Primary Care Physician Primary Care Provider Active Dr. Kristina Rojas DO Emergency Provider Active Team Status: Active Member Role Status Dates Milena Ferrer NP, TUNNEL KILN FIRER-C Family Provider Active Dr. Sarah Lopez MD Primary Care Provider Active Team Status: Inactive Member Role Status Dates Dr. Sarah Lopez MD Primary Care Pro vider, Attending Provider, Referring Provider Active Team Status: Active Member Role/Relationship Status Dates Milena Ferrer NP, T[employer]NEL KILN FIRER-C Family Provider Active Dr. Sarah Lopez MD Primary Care Provider Active Team Status: Inactive Member Role/Relationship Status Dates Dr. Sarah Lopez MD Primary Care Provider Active Start: May 26, 2025 End: May 26, 2025 Dr. Sarah Lopez MD Referring Provider Active Start: May 26, 2025 End: May 26, 2025 RICHELLE Prather Attending Provider Active St art: May 26, 2025 End: May 26, 2025 Team Status: Active Member Role/Relationship Status Dates Dr. Sarah Lopez MD Primary Care Provider Active Start: May 26, 2025 RICHELLE Prather Attending Provider Active St art: May 26, 2025 RICHELLE Prather Referring Provider Active St art: May 26, 2025 Goals (unrecognized section and content) Goals may be documented in a n alternate sectionGoals may be documented in an alternate sectionGoals may be documented in an alternate section Source Comments (unrecognize d section and content) In the event this informatio n is protected by the Federal Confidentiality of Alcohol and Drug Abuse Patient Records regulations: The Federal rules restrict any use of the information to criminally investigate or prosecute any alcohol or drug abuse patient.[facility] the event this information is protected by the Federal Confidentiality of Alcohol and Drug Abuse Patient Records regulations: The Federal rules restrict any use of the information to criminally investigate or prosecute any alcohol or drug abuse patient.[facility] Reason for Visit (unrecogniz ed section and content) Reason Comments Nausea Diarrhea, chills, fa tigue x this AM Reason Comments Diarrhea Nausea, sweats, stom ach cramps x last night FOR RECORDS PERTAINING TO PATIENTS WHO ARE OR HAVE BEEN ENROLLED IN A CHEMICAL DEPENDENCY/SUBSTANCEABUSE PROGRAM, SOME INFORMATION MAY BE OMITTED. This clinical summary was aggregated from multiple sources. Caution should be exercised in using it in the provision of clinical care. This summary normalizes information from multiple sources, and as a consequence, information in this document may materially change the coding, format and clinical context of patient data. In addition, data may be omitted in some cases. CLINICAL DECISIONS SHOULD BE BASED ON THE PRIMARY CLINICAL RECORDS. [facility] [employer] [facility]. provides no warranty or guarantee of the accuracy or completeness of information in this document.
[2025-05-26 12:29] LABS: Hematocrit 45.6 % (40-54); Hemoglobin 15.3 g/dL (13.0-16.5); Immature Granulocytes Count 0.030 X10^3/uL (0.0-0.0); Mean Corp Hgb Conc 33.6 g/dL (32-36); Mean Corpuscular Volume 84.9 fL (80-94); Mean Platelet Vol. 10.3 fl (6.2-12.0); NRBC Flagged by Analyzer 0 % (0-5); Platelet Count 241 K/mm3 (150-450); RBC Distribution Width CV 13.2 % (11.6-14.6); RBC Distribution Width SD 40.7 fl (35.1-43.9); Red Blood Count 5.37 M/mm3 (4.6-6.2); White Blood Count 5.5 K/mm3 (4.4-11.0)
[2025-05-26 14:09] LABS: AST(SGOT) 29 U/L (<=37); Alanine Aminotransfer ALT/SGPT 52 U/L (<=46); Albumin, Serum 4.5 g/dL (3.5-5.0); Alkaline Phosphatase 113 U/L (40-129); Anion Gap 13 (5-15); BUN 12 mg/dL (4-19); BUN/Creat Ratio 16.4 RATIO (10-20); Calcium,Total 10.2 mg/dL (7.6-11.0); Carbon Dioxide 22.9 mmol/L (21.0-32.0); Chloride 99 mmol/L (98-108); Cholesterol 145 mg/dL (<=200); Globulin 3.5 g/dL (2.2-4.2); Glucose 277 mg/dL (70-99); Low Density Lipoprotein Calc. 17 mg/dL; Potassium 4.8 mmol/L (3.3-5.1); Triglycerides 489 mg/dL; Very Low Density Lipoprotein 98 mg/dL (5-40); cholesterol:hdl ratio screen 4.82
== END | disposition home or self-care (01) ==
LOC: BIMLAB 09:23
PROVIDERS: PCP Internal Medicine; Referring Provider Physician Assistant; Visit Provider Physician Assistant
DX: E11.65 Type 2 diabetes mellitus with hyperglycemia (principal)
CPT/HCPCS: 36415; 80053; 80061; 85025